=== PATIENT | female | born 1975 | race Caucasian/White ===

== ENCOUNTER 2016-11-17 19:32 | Emergency (ER) | payer SELFPAY ==
[2016-11-17 19:56] VITALS: RESP 16; O2SAT 98
[2016-11-17] MEDS ORDERED: SULFAMETHOX/TMP 800/160 MG 1 TAB PO ONE (20:07)
--- NOTE | 2016-11-17 20:09 | EDPHY ---
H & P Stated Complaint: Possible baker bite to left foot. HPI/ROS: CHIEF COMPLAINT: Skin infection HISTORY OF PRESENT ILLNESS: possible skin infections in the left foot and left hand. These are amongst several places on her body that appears excoriated. They have been present for 1-2 weeks. She has attempted nothing other than soap on these. She has no fever or chills. No cough or congestion. No body aches. No trauma to the ear. No purulence or fluctuance. She has multiple areas of these and other bodies of various stages of healing. No particular modifying factors to this. REVIEW OF SYSTEMS: Ten systems reviewed and are negative unless otherwise noted in the HPI EXAMINATION General Appearance: Alert, no distress , unkempt Head: normocephalic, atraumatic Eyes: Pupils equal and round, no conjunctival pallor or injection ENT, Mouth: Mucous membranes moist. Uvula midline Respiratory: No dyspnea or retractions. No distress Cardiovascular: Pulses normal throughout. symmetric radial, DP and PT pulsesBrisk cap refill Gastrointestinal: No distention or tenderness Neurological: A&O, sensory symmetric, strength symmetric Skin: Warm and dry, multiple areas of excoriation about the arms and legs. The 2 areas of concern are mild excoriations with possible early infection. There is no palpable fluctuance. No surrounding cellulitis. No edema. No petechiae or purpura. Extremities: Nontender, no pedal edema Psychiatric: Mood and affect normal MDM: 8:00 p.m. superficial wounds to the left foot and left hand. There is no abscess. No cellulitis. There is no evidence of cellulitis. There are also other areas of excoriation about her arms and legs are no evidence of infection. These look like small areas of skin breakdown been excoriated repeatedly. There is nothing to incise and drain. There is no surrounding infection. There is no evidence of DVT or compartment syndrome on either extremity. Discharge with antibiotic therapy and follow up with primary care physician later this week or early next week ED Precautions: Worsening pain. Erythema, edema, cyanosis, pallor, paresthesia or anesthesia. SUPERVISION: This patient was independently evaluated without the aide of supervising physician. Source: Patient Exam Limitations: No limitations - Personal History LMP (Females 10-55): Irregular Current Tetanus Diphtheria and Acellular Pertussis (TDAP): Unsure - Medical/Surgical History Hx Asthma: No Hx Chronic Respiratory Disease: No Hx Diabetes: No Hx Cardiac Disease: No Hx Renal Disease: No Hx Cirrhosis: No Hx Alcoholism: No Hx HIV/AIDS: No Hx Splenectomy or Spleen Trauma: No Other PMH: Lupus, Chrohns. - Social History Smoking Status: Light smoker Constitutional: Initial Vital Signs Temperature (C) 97.7 F 11/17/16 19:39 Heart Rate 78 11/17/16 19:39 Respiratory Rate 16 11/17/16 19:39 Blood Pressure 120/69 11/17/16 19:39 O2 Sat (%) 98 11/17/16 19:39 O2 Delivery Mode Room Air Allergies/Adverse Reactions: No Known Allergies Allergy (Unverified 11/17/16 19:42) Home Medications: Medication Instructions Recorded Sulfamethox/Tmp 800/160 mg 2 tab PO BID 10 Days 11/17/16 [Bactrim Ds] Medical Decision Making - Data Points Medications Given: Discontinued Medications Trimethoprim/Sulfamethoxazole (Bactrim Ds) 2 ea PO EDNOW ONE PRN Reason: Protocol Stop: 11/17/16 20:08 Last Admin: 11/17/16 20:41 Dose: 2 ea Departure - Departure Disposition: Home, Routine, Self-Care Clinical Impression: Excoriation, Superficial injury of skin Instructions: Acute Wound Care (ED) Additional Instructions: Bactrim as discussed. Follow up with primary care physician later this week or early next week for repeat care. Return to ER for worsening pain or surrounding redness, or fever. Referrals: NONE *PRIMARY CARE P,. [Primary Care Provider] - As per Instructions Gemini Barr MD [Medical Doctor] - As per Instructions Prescriptions: Sulfamethox/Tmp 800/160 mg [Bactrim Ds] 2 tab PO BID 10 Days
[2016-11-17] MEDS ORDERED: BACITRACIN OINTMENT 1 PACKET TP ONE (20:35)
[2016-11-17 20:44] VITALS: BP 120/71; PULSE 66; TEMP 97.9
== END 2016-11-17 20:44 | disposition home or self-care (01) ==
DX: L98.1 Factitial dermatitis (principal); F17.200 Nicotine dependence, unspecified, uncomplicated; S69.92XA Unspecified injury of left wrist, hand and finger(s), initial encounter; S99.922A Unspecified injury of left foot, initial encounter; X58.XXXA Exposure to other specified factors, initial encounter

== ENCOUNTER 2017-01-21 11:00 | Inpatient (IN) | payer MEDICAID ==
[2017-01-21] MEDS ORDERED: VANCOMYCIN HCL/NORMAL SALINE 250 ML IV ONE (11:05)
[2017-01-21] MEDS ORDERED: TDAP ADULT 0.5 ML INJ (BOOSTRIX) IM ONE (11:05)
--- NOTE | 2017-01-21 11:08 | EDPHY ---
H & P Time Seen by Provider: 01/21/17 11:06 HPI/ROS: CHIEF COMPLAINT: Bilateral hand pain HISTORY OF PRESENT ILLNESS: 41-year-old homeless female, history of cutaneous MRSA, arrives via ambulance complaining of bilateral hand pain for the past 3 days after injecting methamphetamine into her bilateral hands. She has limited range of motion of her bilateral hands secondary to soft tissue swelling and pain. No fever or chills. No chest pain. No dyspnea. No back pain. No syncope or near syncope. No headache. PRIMARY CARE PROVIDER:none REVIEW OF SYSTEMS: A ten point review of systems was performed and is negative with the exception of the items mentioned in the HPI PAST MEDICAL & SURGICAL HISTORY: Lymphoma as a child. cutaneous MRSA SOCIAL HISTORY: homeless. History of IV drug use PHYSICAL EXAM (Prior to examination, patient consented to physical exam, hands were washed and my usual and customary physical exam procedures followed) 1) GENERAL: Well-developed, well-nourished, alert and oriented. 2) HEAD: Normocephalic, atraumatic 3) HEENT: Pupils equal, round, reactive to light bilaterally. Sclera anicteric. 4) NECK: Full range of motion, no meningeal signs. 5) LUNGS: Clear auscultation bilaterally. 6) HEART: Regular rate and rhythm,. 7) ABDOMEN: No guarding, no rebound, no focal tenderness,, 8) MUSCULOSKELETAL: Right upper extremity: Right volar hand in the webspace between the 1st and 2nd metacarpal non weeping circular lesion. Soft tissue swelling, edema, induration, erythema to the dorsal hand and fingers. Significant pain with active and passive range of motion Left upper extremity:Soft tissue swelling, edema, induration, erythema to the dorsal hand and fingers. Significant pain with active and passive range of motion. 9) BACK: No CVA tenderness 10) SKIN: No rash, no petechiae. 11) Psychiatric: Patient is oriented X 3, there is no agitation. DIFFERENTIAL DIAGNOSIS: in no particular include but not limited to upper extremity DVT, cellulitis, necrotizing fasciitis, retained foreign body from injectable drug use, deep space infection, abscess - Medical/Surgical History Hx Asthma: No Hx Chronic Respiratory Disease: No Hx Diabetes: No Hx Cardiac Disease: No Hx Renal Disease: No Hx Cirrhosis: No Hx Alcoholism: No Hx HIV/AIDS: No Hx Splenectomy or Spleen Trauma: No Other PMH: Lupus, Chrohns. - Social History Smoking Status: Light smoker Constitutional: Initial Vital Signs Temperature (C) 37.0 C 01/21/17 11:00 Heart Rate 124 H 01/21/17 11:00 Respiratory Rate 18 01/21/17 11:00 Blood Pressure 130/73 H 01/21/17 11:00 O2 Sat (%) 99 01/21/17 11:00 O2 Delivery Mode Room Air Allergies/Adverse Reactions: No Known Allergies Allergy (Unverified 11/17/16 19:42) Home Medications: Medication Instructions Recorded Sulfamethox/Tmp 800/160 mg 2 tab PO BID 10 Days 11/17/16 [Bactrim Ds] Medical Decision Making - Diagnostics Imaging: Bilateral Upper Extremity Venous Ultrasound History: Bilateral arm pain and swelling. Technique: The right and left upper extremity venous system as well as neck veins were interrogated with grayscale, color, and spectral Duplex Doppler imaging. Venous ultrasound demonstrates normal appearance of the internal jugular vein and subclavian vein bilaterally with normal color-flow Doppler pattern. The axillary, basilic, brachial, radial, and ulnar veins are normal in appearance bilaterally without intraluminal thrombus with normal compression and normal color-flow Doppler appearance. The right cephalic vein in the region of the antecubital fossa contains echogenic chronic thrombus. The proximal to mid right cephalic vein cannot be visualized. The left cephalic vein is small in caliber without evidence of thrombus. Impression: 1. No evidence of intraluminal deep thrombus venous system right and left upper extremity. 2. Chronic thrombus suspected in the right cephalic vein near the antecubital fossa. This cannot be identified proximally. 3. The left cephalic vein is small in caliber but appears to be patent. Findings were discussed by telephone with Johan Hughes PA-C at 1233 hrs. Dictated By: Alexei Ortega MD Images reviewed by myself ED Course/Re-evaluation: Patient was re-examined with serial examinations. Concerns patient over possible deep space infection bilateral hands. Doubt necrotizing fasciitis at this time. She has been started on IV vancomycin, IV hydration provided. Discussed case WithDr. Johan Galindo in the ER. Patient did meet septic shock criteria with an initial lactate of 4.2 and and repeat lactate 2.1. Phone consultation with hospitalist Jacque at 12:35 p.m., admit to Dr. Vergara with Hand surgery consultation . 1:30 p.m.: Phone consultation with Dr. Petey Ma Hand surgery who will consult. - Data Points Laboratory Results: 01/21/17 01/21/17 01/21/17 12:10 11:25 11:00 VBG Lactic Acid 2.1 mmol/L mmol/L 4.2 mmol/L H mmol/L (0.7-2.1) (0.7-2.1) Beta HCG, Qual NEGATIVE Medications Given: Discontinued Medications Diphtheria/Tetanus/Acell Pertussis (Boostrix) 0.5 ml IM .ONCE ONE Stop: 01/21/17 11:06 Last Admin: 01/21/17 11:33 Dose: 0.5 ml Hydromorphone HCl (Dilaudid) 1 mg IVP EDNOW ONE Stop: 01/21/17 12:12 Last Admin: 01/21/17 12:13 Dose: 1 mg Vancomycin/Sodium Chloride (Vancomycin 1 Gm (Premix)) 250 mls @ 250 mls/hr IV EDNOW ONE PRN Reason: Protocol Stop: 01/21/17 12:04 Last Admin: 01/21/17 11:40 Dose: 250 mls Lorazepam (Ativan Injection) 1 mg IVP EDNOW ONE Stop: 01/21/17 12:47 Last Admin: 01/21/17 12:59 Dose: 1 mg Ondansetron HCl (Zofran) 4 mg IVP EDNOW ONE Stop: 01/21/17 12:12 Last Admin: 01/21/17 12:13 Dose: 4 mg Sodium Chloride (Ns *For Sepsis Order Set Only*) 1,878 ml 30 ml/kg (1878 ml) IV ONCE ONE Stop: 01/21/17 11:17 Last Admin: 01/21/17 12:11 Dose: 1,878 ml Departure - Departure Disposition: [facility] Inpatient Acute Clinical Impression: Bilateral hand cellulitis, IV drug user, Homeless, Septic shock Condition: Fair
[2017-01-21] MEDS ORDERED: NS 1,000 ML BAG *FOR SEPSIS ORDER SET ONLY IV ONE (11:16)
[2017-01-21 11:44] LABS: % IMMATURE GRANULYOCYTES 1.1 % (0.0-1.1); ABSOLUTE IMMATURE GRANULOCYTES 0.26 10^3/uL (0.00-0.10); ADD DIFF? NO; ADD MORPH? NO; ADD SCAN? NO; ATYPICAL LYMPHOCYTE FLAG 10 (0-99); FRAGMENT RBC FLAG 0 (0-99); HEMATOCRIT 41.2 % (38.0-47.0); HEMOGLOBIN 13.9 g/dL (12.6-16.3); LEFT SHIFT FLG 80 (0-99); LIPEMIA HEMOLYSIS FLAG 80 (0-99); MEAN CELL HEMOGLOBIN 29.2 pg (27.9-34.1); MEAN CELL HEMOGLOBIN CONCENTR. 33.7 g/dL (32.4-36.7); MEAN CELL VOLUME 86.6 fL (81.5-99.8); MEAN PLATELET VOLUME 10.8 fL (8.7-11.7); PLATELET CLUMPS FLAG 10 (0-99); PLATELET COUNT 315 10^3/uL (150-400); RED BLOOD CELL COUNT 4.76 10^6/uL (4.18-5.33); RED CELL DISTRIBUTION WIDTH 13.6 % (11.5-15.2)
[2017-01-21 11:55] LABS: INR 1.26 (0.83-1.16); PROTIME(PATIENT) 15.8 SEC (12.0-15.0)
[2017-01-21 12:06] LABS: ANION GAP 16 mEq/L (8-16); BILIRUBIN,TOTAL 1.1 mg/dL (0.1-1.4); CALCIUM 9.3 mg/dL (8.5-10.4); CARBON DIOXIDE 20 mEq/l (22-31); CHLORIDE 99 mEq/L (97-110); CREATININE 0.8 mg/dL (0.6-1.0); GLOMERULAR FILTRATION RATE > 60; GLUCOSE 174 mg/dL (70-100); POTASSIUM 3.9 mEq/L (3.5-5.2); SODIUM 135 mEq/L (134-144)
[2017-01-21] MEDS ORDERED: ONDANSETRON 4 MG/2 ML VIAL IVP ONE (12:11)
[2017-01-21] MEDS ORDERED: HYDROmorphONE/DILAUDID 1 MG/ML SYR IVP ONE (12:11)
[2017-01-21 12:34] LABS: LACGHOST ORDER
[2017-01-21] MEDS ORDERED: LORazepam 2 MG/ML INJ IVP ONE (12:46)
[2017-01-21] MEDS ORDERED: LORazepam 2 MG/ML INJ IVP PRN (13:38)
[2017-01-21] MEDS ORDERED: ONDANSETRON 4 MG/2 ML VIAL IVP PRN (13:38)
[2017-01-21] MEDS ORDERED: ONDANSETRON DISINTEGRATING 4 MG TAB PO PRN (13:38)
[2017-01-21] MEDS ORDERED: ERTAPENEM 1 GM in NS 100 ML IV SCH (14:00)
--- NOTE | 2017-01-21 15:18 | GHP ---
[f rep st] HISTORY AND PHYSICAL DATE OF ADMISSION: 01/21/2017 CHIEF COMPLAINT: Bilateral hand swelling. HISTORY OF PRESENT ILLNESS: This is a 41-year-old female who has been using injection methamphetamine. She presents with 2 days of bilateral hand swelling and redness. She has had fevers that started about yesterday. She has difficulty moving her hands given the swelling and pain. She has no streaking up her arm. She says that she cleans her needles with alcohol and does not lick them before injecting. She does have a history of MRSA when she was in [place] which required per her report an extensive debridement of soft tissue in her leg. She has been negative for HIV and hepatitis in the past. She started injecting about 6 months ago when she had social issues. PAST MEDICAL/SURGICAL HISTORY: 1. MRSA as above. 2. Lymphoma as a child. 3. Debridement of leg infection. MEDICATIONS: She says she takes no medications. ALLERGIES: None. SOCIAL HISTORY: She is homeless. She rarely drinks. She uses meth as above. FAMILY HISTORY: She says her parents are healthy. REVIEW OF SYSTEMS: A 10-point review of systems is conducted and is negative except per HPI. PHYSICAL EXAMINATION: VITAL SIGNS: Blood pressure 129/84, initial heart rate 124, respiration rate 18, saturating 99% on room air. Temperature 37. GENERAL : The patient is quite somnolent. She is lying in bed. She is also tearful throughout the interview. HEENT: Normocephalic, atraumatic. CARDIOVASCULAR: Regular rate and rhythm. There is no murmurs, rubs, or gallops. PULMONARY: Lungs are clear to auscultation bilaterally. ABDOMEN: Soft, nontender, nondistended. SKIN: Multiple tattoos. : No Fowler. NEUROLOGICAL: Exam shows her to be alert and oriented x3. She is moving all extremities. PSYCHIATRIC: Exam shows her to be tearful. EXTREMITIES: Bilateral hands are edematous and erythematous. They are very tender to palpation. They are warm. She has no streaking up her arm. She has no axillary lymphadenopathy. There is no clear area of fluctuance. She has very limited movement in all 4 of her fingers, more on her left hand than the right. LABORATORY DATA: Her white count is 23.9, this is 93% neutrophils. INR is 1.26. Initial venous lactate was 4.2, down to 2.1 on recheck. Basic metabolic panel shows a bicarbonate of 20. DATA: 1. I discussed this with Dave Hughes in the ED. 2. I reviewed her extremity venous study that showed a superficial suspected chronic thrombus in the antecubital fossa. 3. Chest x-ray, personally viewed by me, shows mild increase in her pulmonary vasculature bilaterally. 4. Hand x-rays which are awaiting radiologist's read show no acute fractures. IMPRESSION/PLAN: A 41-year-old female presents with sepsis secondary to soft tissue infection. 1. Sepsis. She meets the definition for septic shock given her lactate. She has received appropriate sepsis bolus. I have placed her on broad-spectrum antibiotics. 2. Bilateral soft tissue infection: This is due to IV drug use. Hand Surgery has been consulted. I have placed an infectious disease consult. She has been given vancomycin in the ED. I will add Invanz given the mechanism to cover Gram negatives while we are awaiting culture data. She may require debridement. 3. IV drug use. She has consented to HIV and hepatitis screening. I have ordered these. She does not use heroin to her knowledge; thus, I do not expect any significant opiate withdrawal. Withdrawal from methamphetamine would be mostly somnolence. She is somewhat agitated. I have written to give her Ativan. /[id number]/MODL MTDD
--- NOTE | 2017-01-21 15:38 | GCON ---
[f rep st] CONSULTATION ORTHOPEDIC CONSULTATION. DATE OF CONSULTATION: 01/21/2017 REASON FOR CONSULTATION: Bilateral hand swelling. HISTORY OF PRESENT ILLNESS: The patient is a 41-year-old homeless female who has had 2 or 3 day his tory of bilateral hand swelling and pain. This is after she has injected methamphetamine into both hands multiple times over the last several days. She has a history of MRSA, and she was brought via ambulance to the [facility] emergency department. I was consulted and saw her. PAST MEDICAL HISTORY: MRSA, lymphoma as a child. SOCIAL HISTORY: She is homeless. IV drug abuser. REVIEW OF SYSTEMS: No shortness of breath or chest pain. She is complaining of some chills. Other garcia, review of systems unremarkable. PHYSICAL EXAM: GENERAL: Multiple tattoos throughout her body. She has scabs on her face and arms. There are multiple track arora from IV drug abuse into both forearms and hands. HEENT: Pupils ar e equal, round, and react to light. NECK: Supple. No lymphadenopathy. No JVD. CHEST: Clear to auscultation. CARDIOVASCULAR: Regular rate and rhythm. ABDOMEN: No tenderness. EXTREMITIES: Fo cusing on her hands shows diffuse swelling, mainly dorsally from the wrist creases all the way down to the tips of her fingers. She has 2+ radial pulses. Brisk capillary refill to all fingertips. S he has pain with both active and passive movement of her fingers. She is nontender in the flexor te ndons of both hands. Forearm compartments are soft. VITAL SIGNS: In the emergency department, her blood pressure is 134/71. Heart rate is 105. Respiratory rate is 16. Oxygen saturation is 96% on room air. LABORATORY STUDIES/X-RAYS: Labs show a white count of 23.9, H and H are 13.9 and 41.22. Chemistrie s show an elevated glucose at 174. X-rays of bilateral hands: There are no retained foreign bodies. No acute fractures are seen. An ultrasound of the forearms show no evidence of an intraluminal deep thrombosis of the right or le ft upper extremities. Suspect chronic thrombosis in the right cephalic vein near the antecubital fo ssa. ASSESSMENT: Cellulitis, bilateral hands. PLAN: At this point, I do not detect any fluctuance in her hands. She does have diffuse swelling. I do not see any evidence of an obvious abscess somewhere in her hands. None of the track arora se en to be draining. I think a reasonable first step would be IV antibiotics. We will see how she re sponds over the next 24 hours or so. We may need to consider MRIs of both her hands to look for a d eep abscess in her hands as a possible surgical target to drain if she fails to respond to IV antibi otic therapy. /[id number]/MODL
[2017-01-21] MEDS: oxyCODONE IR 5 MG TAB PO PRN ×2 (17:22→20:14)
[2017-01-21] MEDS ORDERED: NS 1,000 ML IV ONE ×2 (17:32→20:02)
[2017-01-21] MEDS ORDERED: ALTEPLASE 2 MG VIAL IVP PRN (17:41)
[2017-01-21] MEDS: ACETAMINOPHEN 325 MG TAB PO PRN (17:50)
--- NOTE | 2017-01-21 19:43 | GCON ---
[f rep st] CONSULTATION INFECTIOUS DISEASES CONSULTATION DATE OF CONSULTATION: 01/21/2017 REFERRING PHYSICIAN: Cordell Vergara MD REASON FOR CONSULTATION: Sepsis with bilateral hand infection. HISTORY OF PRESENT ILLNESS: The patient is a 41-year-old female with a past medical history of inje ction drug use and MRSA infection who I am asked to see in consultation for sepsis associated with b ilateral hand infection. The patient describes scraping her hands several days prior to onset of munson nd swelling and tenderness. She also notes that she has been injecting ecstasy into her hands bilat erally. The pain is such that she has difficulty moving her fingers or wrist. She also has develop ed fever and shaking chills over the last 2 days with diffuse myalgias and arthralgias. She also munson s had associated cough. The patient states she does not share needles and uses clean needles, witho ut exposure to oral mucosa prior to injection. She states she uses distilled water to resolve her e cstasy. The patient notes that she had MRSA infection of both hands and her right foot approximatel y 3 months ago and was hospitalized in [place]. She also notes MRSA infection of the left leg in the past when injured in [place]. The patient notes her cough is productive of sputum; this is associ ated with anterior pleuritic chest pain. Based on these findings, she was seen the emergency depart ment earlier today and noted to have a white count of 23,000 with left shift. She also had concomit ant increase in lactic acid, initially to 4.2 which decreased to 2.1 after IV fluid. She has experi enced temperatures since admission peaking at 39.4. She has been initiated on empiric antibiotic th era with vancomycin and ertapenem. Bilateral hand films show swelling without soft tissue gas. B ilateral venous ultrasounds of the upper extremity showed no evidence of DVT, with suspected chronic thrombus in the right cephalic vein. The patient has also been seen in consultation by Hand Surger y with plans for observation while on antibiotic therapy. Given the above findings, I am now asked to assist in her ongoing management. PAST MEDICAL HISTORY: MRSA skin and soft tissue infection, Crohn's disease, lupus. PAST SURGICAL HISTORY: Partial colectomy, left lower extremity leg debridement. CURRENT MEDICATIONS: Ertapenem 1 g IV daily, morphine as needed for severe pain, OxyIR as needed fo r pain, vancomycin 1 g IV q.12 hours; patient received Tdap in the emergency department. ALLERGIES: Patient notes that she has multiple allergies including codeine, some antidepressants, a nd penicillin. SOCIAL HISTORY: Patient is homeless. She denies use of tobacco. She does not use alcohol. She de scribes injecting ecstasy on a regular basis; she has used amphetamines in the past as well. FAMILY HISTORY: Noncontributory. REVIEW OF SYSTEMS: Outside that noted in the HPI, the remainder of a 10 system review is unremarkab le. PHYSICAL EXAMINATION: VITAL SIGNS: Temperature 39.4, heart rate 140, blood pressure 165/93, respir atory rate 24, oxygen saturation 98% on room air. GENERAL: Patient is mildly ill appearing due to pain in both hands; she appears nontoxic. HEENT: There are abrasions over the forehead, left naris and lips. There are no intraoral lesions. Mucous membranes are dry. There is no tenderness over the frontal, maxillary or mastoid area. There is resolving ecchymosis around the left orbit. NECK: Supple without lymphadenopathy or palpable thyromegaly. CHEST: Clear to auscultation bilaterally without adventitious sounds. Respiratory effort is mildly increased. There is episodic cough. CA RDIOVASCULAR: Tachycardic without murmurs, gallops, or rubs. ABDOMEN: Soft, nontender, nondistend ed. There is no palpable organomegaly. Bowel sounds are present. MUSCULOSKELETAL: Bilateral hand s show edema, primarily over the dorsal surface with erythema and scattered track arora from injecti ons; there is tenderness with range of motion of the left wrist and erythema extends into the forear m. There is less tenderness with range of motion of the right wrist. Patient has difficulty fully extending or flexing her digits. There is no palpable fluctuance. The areas are both warm and tend er throughout. LYMPHATICS: There are no cervical or supraclavicular nodes. There are 2 areas of l ymphangitis streaking over the left upper extremity. NEUROLOGIC: Patient is alert and interacts ap propriately with the examiner. Cranial nerves 2-12 are grossly intact. Sensation is grossly intact . SKIN: See musculoskeletal for details. There are no stigmata of endocarditis. Skin is diffusely warm to palpation. LABORATORY DATA: White blood cell count 23.9, hematocrit 41.2, platelets 315, neutrophils 93%. Seru m creatinine 0.8, bicarbonate 20. Anion gap is 16. Beta HCG is negative. INR is 1.3. Venous lactat e is 4.2, decreasing to 2.1 on repeat. Hepatitis C antibody is reactive with hepatitis B surface ant igen and core IgM negative. HIV antibody is pending. Blood cultures x2 sets are pending. IMPRESSION: Sepsis due to bilateral hand cellulitis in this setting of injection drug use and histo ry of MRSA: Likely etiology for the patient's presentation is bilateral hand infection with gram-po sitive organisms being most likely including MRSA, MSSA or beta-hemolytic streptococci. Lymphangiti s is present which could be seen with either entity. Given the history of injection drug use, broad er microbiologic spectrum including Pseudomonas is possible. Will need to follow her exam carefully with antibiotic therapy to assess for evolution to abscess or septic arthritis. May have element o f tenosynovitis present. We will also check influenza as this is prevalent locally currently and co uld also be associated with superimposed infection. Suspect patient may have concomitant bacteremia based on presentation. RECOMMENDATIONS: 1. Agree with vancomycin 1 g IV q.12 hours. 2. Change ertapenem to meropenem for activity against Pseudomonas. 3. Influenza swab by PCR. 4. Repeat venous lactate. 5. Follow up blood cultures over time. 6. Continue to follow clinical exam of hands with low threshold for imaging if does not show improv ement with antibiotic therapy. Thank you for this consultation. We will continue to follow the patient with you. /[id number]/MODL
[2017-01-21] MEDS: LORazepam 0.5 MG TAB PO PRN (20:13)
[2017-01-21] MEDS: MEROPENEM 1 GM in NS 100 ML IV SCH (21:44)
[2017-01-21] MEDS: VANCOMYCIN HCL/NORMAL SALINE 250 ML IV SCH (22:49)
[2017-01-21 23:07] LABS: COLOR AMBER; LEUKOCYTE ESTERASE,URINE 2+ (NEGATIVE); NITRITE,URINE NEGATIVE (NEGATIVE)
[2017-01-21 23:16] LABS: BACTERIA 2+ /hpf (NONE SEEN); MUCUS TRACE /lpf (NONE-1+); RBC,URINE 15-25 /hpf (0-3); WBC,URINE 50-182 /hpf (0-3)
--- NOTE | 2017-01-22 01:12 | HOSPPROG ---
Hospitalist Progress Note Assessment/Plan: Cross cover note: Called from lab for notification that blood cultures positive in both sets-- first set back with identification of strep pyogenes, second set showing GPC in pairs and chains thus far. Reviewed abx and currently with appropriate coverage. ID following. No change in care plan at this time. Objective: Vital Signs Temp Pulse Resp BP Pulse Ox 37.8 C 128 H 122 H 138/60 H 94 01/21/17 20:00 01/21/17 20:00 01/21/17 20:00 01/21/17 21:52 01/21/17 20:00 Laboratory Results 01/21/17 Unknown 01/21/17 Unknown 01/20/17 01/21/17 01/22/17 05:59 05:59 05:59 Intake Total 1999 Balance 1999 PT 15.8 SEC (12.0-15.0) H 01/21/17 Unknown INR 1.26 (0.83-1.16) H 01/21/17 Unknown ICD10 Worksheet Patient Problems: Problems Problem Status Onset IV drug user Acute Homeless Acute Septic shock Acute
[2017-01-22] MEDS: ACETAMINOPHEN 325 MG TAB PO PRN ×4 (02:38→21:56)
[2017-01-22] MEDS: oxyCODONE IR 5 MG TAB PO PRN ×5 (03:17→21:56)
[2017-01-22 04:34] LABS: % IMMATURE GRANULYOCYTES 0.8 % (0.0-1.1); ABSOLUTE IMMATURE GRANULOCYTES 0.16 10^3/uL (0.00-0.10); ADD DIFF? NO; ADD MORPH? NO; ADD SCAN? NO; ATYPICAL LYMPHOCYTE FLAG 0 (0-99); FRAGMENT RBC FLAG 0 (0-99); HEMATOCRIT 31.4 % (38.0-47.0); HEMOGLOBIN 10.4 g/dL (12.6-16.3); LEFT SHIFT FLG 30 (0-99); LIPEMIA HEMOLYSIS FLAG 80 (0-99); MEAN CELL HEMOGLOBIN 29.3 pg (27.9-34.1); MEAN CELL HEMOGLOBIN CONCENTR. 33.1 g/dL (32.4-36.7); MEAN CELL VOLUME 88.5 fL (81.5-99.8); MEAN PLATELET VOLUME 10.1 fL (8.7-11.7); PLATELET CLUMPS FLAG 0 (0-99); PLATELET COUNT 202 10^3/uL (150-400); RED BLOOD CELL COUNT 3.55 10^6/uL (4.18-5.33); RED CELL DISTRIBUTION WIDTH 13.9 % (11.5-15.2)
[2017-01-22 05:38] LABS: ALANINE AMINOTRANSFERASE 27 IU/L (9-52); ALBUMIN 2.5 g/dL (3.5-5.0); ALKALINE PHOSPHATASE 75 IU/L (38-126); ANION GAP 6 mEq/L (8-16); ASPARTATE AMINOTRANSFERASE 25 IU/L (14-46); BILIRUBIN,TOTAL 0.6 mg/dL (0.1-1.4); CALCIUM 7.8 mg/dL (8.5-10.4); CARBON DIOXIDE 22 mEq/l (22-31); CHLORIDE 103 mEq/L (97-110); CREATININE 0.8 mg/dL (0.6-1.0); GLOMERULAR FILTRATION RATE > 60; GLUCOSE 133 mg/dL (70-100); POTASSIUM 3.9 mEq/L (3.5-5.2); SODIUM 131 mEq/L (134-144); TOTAL PROTEIN 5.3 g/dL (6.3-8.2)
[2017-01-22] MEDS: MEROPENEM 1 GM in NS 100 ML IV SCH (05:51)
--- NOTE | 2017-01-22 07:53 | SOAPPROG ---
[facility] Progress Note Assessment/Plan: Assessment: Plan: 01/22/17 07:50 +blood cx's o/n Cellulitis vs septic arthritis both wrists/hands clinical improvement right, no change left will get IR to aspirate left wrist MRI's W/WO both wrist/hands to look for abscess today Subjective: Right wrist feeling better Objective: Less swelling, better movement right wrist and fingers Continued tenderness left wrist and dorsum of left hand no obvious fluctuance or abscess Vital Signs Temp Pulse Resp BP Pulse Ox 38.8 C H 116 H 14 109/51 L 97 01/22/17 04:00 01/22/17 04:00 01/22/17 04:00 01/22/17 04:00 01/22/17 04:00 Laboratory Results 01/22/17 04:25 01/22/17 04:25 01/21/17 01/22/17 01/23/17 05:59 05:59 05:59 Intake Total 2600 Balance 2600 PT 15.8 SEC (12.0-15.0) H 01/21/17 Unknown INR 1.26 (0.83-1.16) H 01/21/17 Unknown ICD10 Worksheet Patient Problems: Problems Problem Status Onset Homeless Acute IV drug user Acute Septic shock Acute
--- NOTE | 2017-01-22 10:10 | PCMIDPN ---
Assessment/Plan: Assessment/Plan: * Sepsis due to group A streptococcal bacteremia with bilateral hand cellulitis with concerns for possible bilateral septic arthritis and/or soft tissue abscess : 2 of 2 blood cultures with growth of group A Streptococcus. Right hand slightly improved although continues to have significant pain in wrist joint and left hand remains with erythema, edema and pain in wrist joint as well as limited range of motion of fingers. Reviewed findings with Dr. Ma with plans for bilateral hand MRI and left wrist aspirate. Suspect she likely will need debridement. Will modify antibiotics to include vancomycin (until cultures more mature no evidence of MRSA present) and clindamycin (combating toxin production and [place] effect). Will discontinue meropenem. Repeat blood cultures to assess for clearing of bacteremia. 01/22/17 10:09 Subjective: Overall patient feels better but persistent bilateral hand and wrist pain. Objective: Vital Signs Temp Pulse Resp BP Pulse Ox 37.6 C 110 H 20 115/67 93 01/22/17 08:00 01/22/17 08:00 01/22/17 08:00 01/22/17 08:00 01/22/17 08:00 Laboratory Results 01/22/17 04:25 01/22/17 04:25 01/21/17 01/22/17 01/23/17 05:59 05:59 05:59 Intake Total 2600 Output Total 300 Balance 2600 -300 Vancomycin # 1 Meropenem # 1 Blood cultures 2/2 group A Streptococcus Tm 39.4 - Physical Exam General Appearance: alert, non-toxic EENT: No scleral icterus, No conjunctival petechiae Respiratory: lungs clear, No respiratory distress Cardiac/Chest: tachycardia, No systolic murmur Extremities: inflammation (Bilateral hand edema primarily on the dorsal aspect with overlying erythema, warmth and tenderness; erythema extends into digits bilaterally; decreased range of motion with flexion and extension; exquisite tenderness both wrist with palpation and range of motion; no palpable fluctuance ) Skin: No embolic lesions Lymphatic: other (Lymphangitis still present in left upper extremity but less prominent) ICD10 Worksheet Patient Problems: Problems Problem Status Onset Homeless Acute IV drug user Acute Septic shock Acute
[2017-01-22] MEDS: VANCOMYCIN HCL/NORMAL SALINE 250 ML IV SCH ×2 (11:10→23:12)
--- NOTE | 2017-01-22 14:12 | HOSPPROG ---
Hospitalist Progress Note Assessment/Plan: # septic shock (lactate > 4) d/y GAS bacteremia - slowly improving, cont IVF; has PICC # GAS bacteremia d/t cellulitis, possible septic arthritis/abscess of hands - repeat BCx, MRI today, aspirate L wrist, may need I&D in OR - cont vanc, clinda per ID # IVDU - HIV pending # HCV ab+ - check viral load ## high risk given sepsis Subjective: tachy overnight; hands still very painful Objective: Vital Signs Temp Pulse Resp BP Pulse Ox 37.5 C 102 H 22 H 119/52 L 99 01/22/17 12:00 01/22/17 12:00 01/22/17 12:00 01/22/17 12:00 01/22/17 12:00 Laboratory Results 01/22/17 04:25 01/22/17 04:25 01/21/17 01/22/17 01/23/17 05:59 05:59 05:59 Intake Total 2600 1330 Output Total 300 Balance 2600 1030 PT 15.8 SEC (12.0-15.0) H 01/21/17 Unknown INR 1.26 (0.83-1.16) H 01/21/17 Unknown - Physical Exam Constitutional: uncomfortable Cardiovascular: no murmur, rub, or gallop, tachycardia Respiratory: no respiratory distress, no rales or rhonchi, clear to auscultation Gastrointestinal: normoactive bowel sounds, soft, non-tender abdomen, no palpable masses Musculoskeletal: other (bilat hands with slightly improved erythema/edema) ICD10 Worksheet Patient Problems: Problems Problem Status Onset IV drug user Acute Homeless Acute Septic shock Acute
[2017-01-22] MEDS: CLINDAMYCIN 600 MG/DEXTROSE 50 ML IV SCH ×2 (14:48→21:56)
[2017-01-22] MEDS: NS 1,000 ML IV SCH (15:03)
[2017-01-22] MEDS ORDERED: GADOBUTROL 10 ML VIAL IVP ONE (17:16)
--- NOTE | 2017-01-22 20:15 | SOAPPROG ---
SOAP Progress Note Assessment/Plan: Assessment: Plan: 01/22/17 07:50 +blood cx's o/n Cellulitis vs septic arthritis both wrists/hands clinical improvement right, no change left will get IR to aspirate left wrist MRI's W/WO both wrist/hands to look for abscess today 01/22/17 20:13 Reviewed MRI's with DR parada no definitive fluid collection just extensive cellulitis discussed case with DR Sosa earlier Today, given the strep A cx's and only minimal clinical improvement with IVabx will proceed with Bilat I&D's of wrists and hands in am Subjective: about the same pain level Objective: blistering of skin noted dorsum left fingers significant swelling persists dorsum left hand pain with passive movement left wrist/fingers Vital Signs Temp Pulse Resp BP Pulse Ox 38.5 C H 123 H 20 124/62 H 94 01/22/17 19:16 01/22/17 19:16 01/22/17 19:16 01/22/17 19:16 01/22/17 19:16 Laboratory Results 01/22/17 04:25 01/22/17 04:25 01/21/17 01/22/17 01/23/17 05:59 05:59 05:59 Intake Total 2600 1530 Output Total 300 Balance 2600 1230 PT 15.8 SEC (12.0-15.0) H 01/21/17 Unknown INR 1.26 (0.83-1.16) H 01/21/17 Unknown ICD10 Worksheet Patient Problems: Problems Problem Status Onset Homeless Acute IV drug user Acute Septic shock Acute
[2017-01-23] MEDS: CLINDAMYCIN 600 MG/DEXTROSE 50 ML IV SCH ×3 (05:03→22:20)
[2017-01-23 05:04] LABS: % IMMATURE GRANULYOCYTES 1.5 % (0.0-1.1); ABSOLUTE IMMATURE GRANULOCYTES 0.23 10^3/uL (0.00-0.10); ADD DIFF? NO; ADD MORPH? NO; ADD SCAN? NO; ATYPICAL LYMPHOCYTE FLAG 0 (0-99); FRAGMENT RBC FLAG 0 (0-99); HEMATOCRIT 30.4 % (38.0-47.0); LEFT SHIFT FLG 60 (0-99); LIPEMIA HEMOLYSIS FLAG 80 (0-99); MEAN CELL HEMOGLOBIN 29.6 pg (27.9-34.1); MEAN CELL HEMOGLOBIN CONCENTR. 32.9 g/dL (32.4-36.7); MEAN CELL VOLUME 89.9 fL (81.5-99.8); MEAN PLATELET VOLUME 10.6 fL (8.7-11.7); PLATELET CLUMPS FLAG 0 (0-99); PLATELET COUNT 175 10^3/uL (150-400); RED BLOOD CELL COUNT 3.38 10^6/uL (4.18-5.33); RED CELL DISTRIBUTION WIDTH 13.9 % (11.5-15.2)
[2017-01-23 05:38] LABS: ANION GAP 5 mEq/L (8-16); CALCIUM 8.2 mg/dL (8.5-10.4); CARBON DIOXIDE 21 mEq/l (22-31); CHLORIDE 105 mEq/L (97-110); CREATININE 0.6 mg/dL (0.6-1.0); GLOMERULAR FILTRATION RATE > 60; GLUCOSE 100 mg/dL (70-100); POTASSIUM 4.3 mEq/L (3.5-5.2); SODIUM 131 mEq/L (134-144)
[2017-01-23] MEDS ORDERED: BACITRACIN 50,000 UNITS/10 ML SYR IRR ONE (07:37)
[2017-01-23] MEDS ORDERED: POLYMYXIN B SULFATE 500,000 UNIT/10 ML SYR IRR ONE (07:37)
[2017-01-23] MEDS ORDERED: BUPIVACAINE 0.5% 30 ML SDV ONE (07:46)
[2017-01-23] MEDS ORDERED: fentaNYL 100 MCG/2 ML INJ ONE ×2 (08:03→09:53)
[2017-01-23] MEDS ORDERED: PROPOFOL 200 MG/20 ML VIAL ONE (08:03)
[2017-01-23] MEDS ORDERED: MIDAZOLAM 2 MG/2 ML VIAL ONE ×2 (08:04→09:22)
[2017-01-23] MEDS ORDERED: DEXAMETHASONE 4 MG/ML VIAL ONE ×2 (08:37)
[2017-01-23] MEDS ORDERED: HYDROmorphONE/DILAUDID 2 MG/ML INJ ONE ×2 (08:37→10:03)
[2017-01-23] MEDS ORDERED: LIDOCAINE 2% 5 ML SDV ONE ×2 (08:37)
[2017-01-23] MEDS ORDERED: KETOROLAC 30 MG/1 ML SDV ONE (08:44)
[2017-01-23] MEDS ORDERED: ONDANSETRON 4 MG/2 ML VIAL ONE (08:44)
[2017-01-23] MEDS ORDERED: METOPROLOL TARTRATE 5 MG/5 ML INJ ONE (09:24)
--- NOTE | 2017-01-23 09:49 | POSTOPPROG ---
Post Op Note Date of Operation: 01/23/17 Surgeon: Petey Ma Anesthesiologist: delia Anesthesia: GET(General Endotracheal) Pre-op Diagnosis: septic arthritis both wrists Post-op Diagnosis: same Procedure: I&D bilat wrists and hands Inf/Abcess present in the surg proc area at time of surgery?: Yes Depth: Deep Incisional (Fascial) EBL: 100-500 Complications: none Drains: Ivan Gutierrez Specimen(s): 4 swabs
--- NOTE | 2017-01-23 10:53 | GOP ---
[f rep st] OPERATIVE REPORT DATE OF OPERATION: 01/23/2017 SURGEON: Petey Ma MD ANESTHESIA: General. ANESTHESIOLOGIST: Dr. Richardson. PREOPERATIVE DIAGNOSIS: Septic arthritis bilateral wrists. POSTOPERATIVE DIAGNOSIS: Septic arthritis bilateral wrists. PROCEDURE PERFORMED: Irrigation and debridement of bilateral hands and wrists. FINDINGS: ESTIMATED BLOOD LOSS: 100 mL. INDICATIONS: The patient is a 41-year-old IV drug abuser who presented to the hospital on Tuesday af with several day history of worsening hand pain, swelling, and difficulty using the hands. Blood cultures have grown out strep A. She is being followed by Infectious Disease as well as the h ospitalist. We obtained MRIs. There was no evidence for abscess formation other than diffuse cellu litis in both hands. Decision was made to proceed with an irrigation and debridement of her hands a nd wrists on both sides due to very minimal clinical improvement with IV antibiotics alone. DESCRIPTION OF PROCEDURE: After appropriate informed consent was obtained, patient was taken to the operating room and placed supine on the operating table. A time-out was performed. Patient was id entified, correct site was identified. She did not receive any preoperative antibiotics. She yinka nued her IV regimen from the floor. Dr. Richardson administered general endotracheal tube anesthesia. Bilateral upper extremities were prepped and draped in the usual sterile fashion. I made a dorsal i ncision extending over the wrist crease all the way down to the MCP joints on the hand. Bleeding wa s controlled with electrocautery. She had purulence in the extensor tendons of the left hand extend ing into the distal end of the forearm, all the way down into the fingers. I irrigated this out. T here was minimal necrotic tissue that was removed. No real evidence of necrotizing fasciitis was pr esent. I opened the extensor retinaculum in the dorsal wrist capsule. Wrist joint did not have any purulence in it. I sent a swab culture of that as well. I irrigated the left hand with pulsatile lavage using 6 L of normal saline. We then placed a deep drain and loosely closed the skin with nyl on stitch. I turned my attention to the right hand. Again, same incision extending from the MCP joints across the dorsal wrist crease. There was no evidence of purulence in the extensor tendons. I opened up t he wrist joint capsule. Again, no evidence there. I sent swabs both the extensor tendons as well a s the wrist joint. There was no necrotic tissue in the right hand. I irrigated the right hand with 3 L of pulsatile lavage with normal saline. There was a small abscess in the first webspace. I de brided that. There was a small amount of purulence superficially, did not extend anywhere. I washe d that out as well, mostly close that. Loosely closed the right hand with nylon stitches. I did no t place a deep drain in the right hand. I instilled 20 mL of 0.5% Marcaine plain in both wrists, 10 and 10, and then placed a loose soft dressing. The patient was awakened from anesthesia, taken to the recovery room in satisfactory condition. There were no immediate intraoperative complications. I reviewed the operative findings with Dr. Trung Sosa from Infectious Disease. COMPLICATIONS: None. DRAINS: None. /[id number]/MODL
[2017-01-23] MEDS: VANCOMYCIN HCL/NORMAL SALINE 250 ML IV SCH ×2 (12:29→19:52)
--- NOTE | 2017-01-23 14:49 | HOSPPROG ---
Hospitalist Progress Note Assessment/Plan: # septic shock (lactate > 4) d/y GAS bacteremia - slowly improving, cont IVF; has PICC # GAS bacteremia d/t soft tissue infection # cellulitis/tenosynovitis/abscess s/p I&D - abx per ID - currently pcn, vanc, clinda # IVDU - HIV pending # HCV ab+ - check viral load # hypoNa - d.t sepsis, follow ## op note reviewed MRI reviewed high risk Subjective: s/p I&D today - hands feel better Objective: Vital Signs Temp Pulse Resp BP Pulse Ox 36.4 C 96 18 138/71 H 100 01/23/17 14:21 01/23/17 14:21 01/23/17 14:21 01/23/17 14:21 01/23/17 14:21 Microbiology 01/23/17 09:10 Gram Stain - Final Wrist - Eswab 01/23/17 09:10 Gram Stain - Final Wrist - Eswab 01/23/17 09:10 Gram Stain - Final Wrist - Eswab 01/23/17 09:10 Gram Stain - Final Wrist - Eswab Laboratory Results 01/23/17 04:55 01/23/17 04:55 01/22/17 01/23/17 01/24/17 05:59 05:59 05:59 Intake Total 2600 3405 700 Output Total 300 2105 Balance 2600 3105 -1405 PT 15.8 SEC (12.0-15.0) H 01/21/17 Unknown INR 1.26 (0.83-1.16) H 01/21/17 Unknown - Physical Exam Constitutional: no apparent distress, appears nourished, not in pain Eyes: PERRL, anicteric sclera, EOMI Cardiovascular: regular rate and rhythym, no murmur, rub, or gallop Respiratory: no respiratory distress, no rales or rhonchi, clear to auscultation Gastrointestinal: normoactive bowel sounds, soft, non-tender abdomen, no palpable masses Genitourinary: no bladder fullness, no bladder tenderness, no renal bruits Skin: no rashes or abrasions, no fluctuance, no induration Musculoskeletal: other (bilat hands wrapped in gauze; ) Neurologic: AAOx3, sensation intact bilaterally Psychiatric: interacting appropriately, not anxious, not encephalopathic, thought process linear ICD10 Worksheet Patient Problems: Problems Problem Status Onset IV drug user Acute Homeless Acute Septic shock Acute
--- NOTE | 2017-01-23 17:11 | PCMIDPN ---
Assessment/Plan: Assessment/Plan: * Sepsis due to group A streptococcal bacteremia with bilateral hand cellulitis and tenosynovitis status post incision and drainage: 2 of 2 blood cultures with growth of group A Streptococcus. Operative findings reviewed with Dr. Ma. Will add penicillin to vancomycin and clindamycin pending hand cultures to provide ideal activity against group A Streptococcus; vancomycin continued based on history of MRSA although suspect this will primarily be related to group A streptococcal disease. May need second-look/incision and drainage of left hand over time based on clinical findings. * Hepatitis-C: RNA pending. 01/23/17 17:08 Subjective: Patient is status post incision and drainage of both hands with findings of purulent tenosynovitis on the left extending into the forearm; joint did not appear to have active infection. Right side did not reveal purulence. No evidence of necrotizing fasciitis operatively. Objective: Vital Signs Temp Pulse Resp BP Pulse Ox 37.0 C 87 16 120/62 96 01/23/17 16:00 01/23/17 16:00 01/23/17 16:00 01/23/17 16:00 01/23/17 16:00 Microbiology 01/23/17 09:10 Gram Stain - Final Wrist - Eswab 01/23/17 09:10 Gram Stain - Final Wrist - Eswab 01/23/17 09:10 Gram Stain - Final Wrist - Eswab 01/23/17 09:10 Gram Stain - Final Wrist - Eswab Laboratory Results 01/23/17 04:55 01/23/17 04:55 01/22/17 01/23/17 01/24/17 05:59 05:59 05:59 Intake Total 2600 3405 700 Output Total 300 2605 Balance 2600 3105 -1905 Tm 39.4 Vancomycin # 2 Clindamycin # 1 Operative Gram stain with no organisms Blood cultures 2/2 with group A Streptococcus Blood cultures 01/23/2017 pending Bilateral hand MRI without evidence of abscess; tenosynovitis present bilaterally Laboratory Tests 01/23/17 11:05 Vancomycin Trough 5.2 - Physical Exam General Appearance: alert, no apparent distress EENT: No scleral icterus, No conjunctival petechiae Respiratory: lungs clear, No respiratory distress Cardiac/Chest: regular rate, rhythm, No systolic murmur Extremities: inflammation (Bilateral hands dressed postoperatively; bullous lesions present over dorsal aspects of several digit/dorsal hand distally) Abdomen: non-tender, No distended ICD10 Worksheet Patient Problems: Problems Problem Status Onset Homeless Acute IV drug user Acute Septic shock Acute
[2017-01-23] MEDS: PENICILLIN G POTASSIUM 4,000,000 UNIT in D5W 100 ML IV SCH ×2 (17:58→23:25)
[2017-01-23] MEDS: oxyCODONE IR 5 MG TAB PO PRN (19:52)
[2017-01-24] MEDS: PENICILLIN G POTASSIUM 4,000,000 UNIT in D5W 100 ML IV SCH ×6 (01:58→22:44)
[2017-01-24] MEDS: oxyCODONE IR 5 MG TAB PO PRN ×6 (02:32→21:46)
[2017-01-24] MEDS: VANCOMYCIN HCL/NORMAL SALINE 250 ML IV SCH (04:32)
[2017-01-24 05:07] LABS: % IMMATURE GRANULYOCYTES 0.5 % (0.0-1.1); ABSOLUTE IMMATURE GRANULOCYTES 0.07 10^3/uL (0.00-0.10); ADD DIFF? NO; ADD MORPH? NO; ADD SCAN? NO; ATYPICAL LYMPHOCYTE FLAG 0 (0-99); FRAGMENT RBC FLAG 0 (0-99); HEMATOCRIT 25.5 % (38.0-47.0); HEMOGLOBIN 8.4 g/dL (12.6-16.3); LEFT SHIFT FLG 80 (0-99); LIPEMIA HEMOLYSIS FLAG 80 (0-99); MEAN CELL HEMOGLOBIN 29.1 pg (27.9-34.1); MEAN CELL HEMOGLOBIN CONCENTR. 32.9 g/dL (32.4-36.7); MEAN CELL VOLUME 88.2 fL (81.5-99.8); MEAN PLATELET VOLUME 11.3 fL (8.7-11.7); PLATELET CLUMPS FLAG 0 (0-99); PLATELET COUNT 200 10^3/uL (150-400); RED BLOOD CELL COUNT 2.89 10^6/uL (4.18-5.33); RED CELL DISTRIBUTION WIDTH 13.9 % (11.5-15.2)
[2017-01-24 05:14] LABS: ANION GAP 3 mEq/L (8-16); CALCIUM 8.3 mg/dL (8.5-10.4); CARBON DIOXIDE 23 mEq/l (22-31); CHLORIDE 108 mEq/L (97-110); CREATININE 0.5 mg/dL (0.6-1.0); GLOMERULAR FILTRATION RATE > 60; GLUCOSE 108 mg/dL (70-100); POTASSIUM 4.8 mEq/L (3.5-5.2); SODIUM 134 mEq/L (134-144)
[2017-01-24] MEDS: CLINDAMYCIN 600 MG/DEXTROSE 50 ML IV SCH ×3 (06:06→21:46)
--- NOTE | 2017-01-24 09:28 | PCMIDPN ---
Assessment/Plan: Assessment/Plan: * Sepsis due to group A streptococcal bacteremia with bilateral hand cellulitis and tenosynovitis status post incision and drainage: Right hand significantly improved postoperatively in terms of range of motion of digits. Left hand still with bulla and now also has some forearm swelling and tenderness distal to elbow. No overlying cellulitis or fluctuance. Suspect she likely will require 2nd incision and drainage of left upper extremity. Will elevate as feasible today. Continue penicillin and clindamycin. Will discontinue vancomycin given no isolation of MRSA. * Hepatitis-C: RNA pending. 01/24/17 09:25 Subjective: Patient complains of pain in left forearm below elbow. Improved range of motion of right hand. Persistent blisters over left hand. Objective: Vital Signs Temp Pulse Resp BP Pulse Ox 36.6 C 78 16 153/81 H 98 01/24/17 08:01 01/24/17 08:01 01/24/17 08:01 01/24/17 08:01 01/24/17 08:01 Microbiology 01/23/17 09:10 Gram Stain - Final Wrist - Eswab 01/23/17 09:10 Gram Stain - Final Wrist - Eswab 01/23/17 09:10 Gram Stain - Final Wrist - Eswab 01/23/17 09:10 Gram Stain - Final Wrist - Eswab Laboratory Results 01/24/17 04:35 01/24/17 04:35 01/23/17 01/24/17 01/25/17 05:59 05:59 05:59 Intake Total 3405 4894 Output Total 300 4695 Balance 3105 199 Vancomycin # 3 Clindamycin # 2 Penicillin # 1 Blood cultures 01/23/2017 pending Operative cultures no growth to date - Physical Exam General Appearance: alert, no apparent distress, non-toxic EENT: No scleral icterus, No conjunctival petechiae Respiratory: lungs clear, No respiratory distress Cardiac/Chest: regular rate, rhythm, systolic murmur (2/6 left upper sternal border) Extremities: inflammation (Right hand with improved range of motion and decreased swelling of digits; left hand with slight increased range of motion but persistent limitation present; bulla over middle finger and dorsum of hand without interval change; tender over proximal forearm without erythema or fluctuance; mild edema in this region is present) Abdomen: non-tender, No distended Lymphatic: other (Left upper extremity lymphangitis resolved) ICD10 Worksheet Patient Problems: Problems Problem Status Onset Homeless Acute IV drug user Acute Septic shock Acute
[2017-01-24] MEDS: NS 1,000 ML IV SCH (10:36)
[2017-01-24] MEDS: GABAPENTIN 300 MG CAP PO SCH ×2 (15:27→21:46)
[2017-01-24] MEDS: ACETAMINOPHEN 500 MG TAB PO SCH ×2 (15:27→21:46)
--- NOTE | 2017-01-24 15:43 | HOSPPROG ---
Hospitalist Progress Note Assessment/Plan: Juanita Zhang is a 41 y/o female who use Iv methamphetamine who presented to the ER with 2 days of bilateral hand swelling with associated fevers. Today is my first encounter with the patient/ chart reviewed. Reviewed her care with Dr Sosa earlier today and with Dr Kehinde Vergara who has been caring for Juanita. 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 Objective: Vital Signs Temp Pulse Resp BP Pulse Ox 36.6 C 85 16 146/65 H 93 01/24/17 12:00 01/24/17 12:00 01/24/17 12:00 01/24/17 12:00 01/24/17 12:00 Microbiology 01/23/17 09:10 Gram Stain - Final Wrist - Eswab 01/23/17 09:10 Gram Stain - Final Wrist - Eswab 01/23/17 09:10 Gram Stain - Final Wrist - Eswab 01/23/17 09:10 Gram Stain - Final Wrist - Eswab Laboratory Results 01/24/17 04:35 01/24/17 04:35 01/23/17 01/24/17 01/25/17 05:59 05:59 05:59 Intake Total 3405 4894 Output Total 300 4695 350 Balance 3105 199 -350 PT 15.8 SEC (12.0-15.0) H 01/21/17 Unknown INR 1.26 (0.83-1.16) H 01/21/17 Unknown - Physical Exam Constitutional: appears nourished, uncomfortable, No not in pain Eyes: PERRL Ears, Nose, Mouth, Throat: hearing normal Cardiovascular: regular rate and rhythym Respiratory: no respiratory distress Gastrointestinal: normoactive bowel sounds Skin: other (blisters on left fingers and has some swelling to left forearm area / redness around elbow and below/ dressings on both hands/ right hand has good rom, less swelling) Musculoskeletal: muscular tenderness Neurologic: AAOx3 Psychiatric: interacting appropriately, not anxious ICD10 Worksheet Patient Problems: Problems Problem Status Onset Homeless Acute IV drug user Acute Septic shock Acute
--- NOTE | 2017-01-24 18:19 | SOAPPROG ---
SOAP Progress Note Assessment/Plan: Assessment: Plan: Subjective: states she's fairly comfortable and happy that fingers are intact and working dressings and splints intact NVI in both hands with blisters and ecchymosis noted on left but not right ?wash-out again on tuesday continue abx Objective: Vital Signs Temp Pulse Resp BP Pulse Ox 36.9 C 93 16 144/86 H 95 01/24/17 15:48 01/24/17 15:48 01/24/17 15:48 01/24/17 15:48 01/24/17 15:48 Microbiology 01/23/17 09:10 Gram Stain - Final Wrist - Eswab 01/23/17 09:10 Gram Stain - Final Wrist - Eswab 01/23/17 09:10 Gram Stain - Final Wrist - Eswab 01/23/17 09:10 Gram Stain - Final Wrist - Eswab Laboratory Results 01/24/17 04:35 01/24/17 04:35 01/23/17 01/24/17 01/25/17 05:59 05:59 05:59 Intake Total 3405 4894 1474 Output Total 300 4695 650 Balance 3105 199 824 PT 15.8 SEC (12.0-15.0) H 01/21/17 Unknown INR 1.26 (0.83-1.16) H 01/21/17 Unknown ICD10 Worksheet Patient Problems: Problems Problem Status Onset Homeless Acute IV drug user Acute Septic shock Acute
[2017-01-25] MEDS: PENICILLIN G POTASSIUM 4,000,000 UNIT in D5W 100 ML IV SCH ×6 (02:24→23:11)
[2017-01-25] MEDS: oxyCODONE IR 5 MG TAB PO PRN ×6 (05:24→20:58)
[2017-01-25] MEDS: CLINDAMYCIN 600 MG/DEXTROSE 50 ML IV SCH ×3 (05:24→22:17)
[2017-01-25] MEDS: ACETAMINOPHEN 500 MG TAB PO SCH ×3 (07:40→22:08)
[2017-01-25] MEDS: GABAPENTIN 300 MG CAP PO SCH ×3 (07:40→22:08)
--- NOTE | 2017-01-25 11:31 | PCMIDPN ---
Assessment/Plan: Assessment/Plan: * Sepsis due to group A streptococcal bacteremia with bilateral hand cellulitis and tenosynovitis status post incision and drainage: Right hand with significant clinical improvement without residual cellulitis and range of motion significantly improved. Left hand also significantly improved but still may require 2nd washout to ensure no residual infection present. Continue penicillin and clindamycin. Will reassess tomorrow and review with Dr. Ma regarding potential second-look operatively at left hand/forearm. * Hepatitis-C: RNA pending. 01/25/17 11:29 Subjective: Feels better with less hand pain and improving range of motion bilaterally. Elevated left upper extremity yesterday. Objective: Vital Signs Temp Pulse Resp BP Pulse Ox 36.9 C 90 18 162/70 H 97 01/25/17 07:25 01/25/17 07:25 01/25/17 07:25 01/25/17 07:25 01/25/17 07:25 Microbiology 01/23/17 09:10 Gram Stain - Final Wrist - Eswab 01/23/17 09:10 Gram Stain - Final Wrist - Eswab 01/23/17 09:10 Gram Stain - Final Wrist - Eswab 01/23/17 09:10 Gram Stain - Final Wrist - Eswab Laboratory Results 01/24/17 04:35 01/24/17 04:35 01/24/17 01/25/17 01/26/17 05:59 05:59 05:59 Intake Total 4894 1874 316 Output Total 4632 8365 900 Balance 215 -8594 -064 Penicillin # 2 Clindamycin # 3 Antibiotics # 4 Blood cultures 01/23/2017 no growth Operative cultures no growth to date - Physical Exam General Appearance: alert, no apparent distress EENT: No scleral icterus, No conjunctival petechiae Cardiac/Chest: regular rate, rhythm, No systolic murmur Extremities: inflammation (Left hand with intact incision; decreased edema over dorsum of hand and forearm; incision intact without purulent drainage; significant improvement in range of motion of digits; hemorrhagic appearing blisters over digits without change; right hand incision intact without purulence; erythema and edema significantly decreased with marked improvement in range of motion) ICD10 Worksheet Patient Problems: Problems Problem Status Onset Homeless Acute IV drug user Acute Septic shock Acute
--- NOTE | 2017-01-25 15:55 | HOSPPROG ---
Hospitalist Progress Note Assessment/Plan: Juanita Zhang is a 41 y/o female who use Iv methamphetamine who presented to the ER with 2 days of bilateral hand swelling with associated fevers. Reviewed her care with Dr Sosa. 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 CM to try and see if they can reconnect. Patient is homeless. Cont current abx. Subjective: Juanita Zhang said her hands are feeling better. Objective: Vital Signs Temp Pulse Resp BP Pulse Ox 37.1 C 106 H 18 149/79 H 93 01/25/17 15:35 01/25/17 15:35 01/25/17 15:35 01/25/17 15:35 01/25/17 15:35 Microbiology 01/23/17 09:10 Gram Stain - Final Wrist - Eswab 01/23/17 09:10 Gram Stain - Final Wrist - Eswab 01/23/17 09:10 Gram Stain - Final Wrist - Eswab 01/23/17 09:10 Gram Stain - Final Wrist - Eswab Laboratory Results 01/24/17 04:35 01/24/17 04:35 01/24/17 01/25/17 01/26/17 05:59 05:59 05:59 Intake Total 4816 1874 2366 Output Total 4614 1267 1900 Balance 199 -1001 466 PT 15.8 SEC (12.0-15.0) H 01/21/17 Unknown INR 1.26 (0.83-1.16) H 01/21/17 Unknown - Physical Exam Constitutional: chronically ill appearing, other (thin) Eyes: PERRL Ears, Nose, Mouth, Throat: hearing normal Cardiovascular: regular rate and rhythym Respiratory: no respiratory distress Gastrointestinal: normoactive bowel sounds Skin: warm, other (left fingers with bullae, less swelling in fingers, can bend them slightly, redness aroung left elbow area better. Right hand fingers less edema, still red, but can bend her fingers.) Neurologic: AAOx3 Psychiatric: interacting appropriately, anxious ICD10 Worksheet Patient Problems: Problems Problem Status Onset Homeless Acute IV drug user Acute Septic shock Acute
--- NOTE | 2017-01-25 15:57 | SOAPPROG ---
SOAP Progress Note Assessment/Plan: Assessment: Plan: Subjective: states her swelling is better and she is able to move her left fingers today blisters more full on left hand increased flexion ability in bilateral fingers cont abx and dressings Objective: Vital Signs Temp Pulse Resp BP Pulse Ox 37.1 C 106 H 18 149/79 H 93 01/25/17 15:35 01/25/17 15:35 01/25/17 15:35 01/25/17 15:35 01/25/17 15:35 Microbiology 01/23/17 09:10 Gram Stain - Final Wrist - Eswab 01/23/17 09:10 Gram Stain - Final Wrist - Eswab 01/23/17 09:10 Gram Stain - Final Wrist - Eswab 01/23/17 09:10 Gram Stain - Final Wrist - Eswab Laboratory Results 01/24/17 04:35 01/24/17 04:35 01/24/17 01/25/17 01/26/17 05:59 05:59 05:59 Intake Total 8548 8974 0511 Output Total 0336 2117 1900 Balance 199 -1001 466 PT 15.8 SEC (12.0-15.0) H 01/21/17 Unknown INR 1.26 (0.83-1.16) H 01/21/17 Unknown ICD10 Worksheet Patient Problems: Problems Problem Status Onset Homeless Acute IV drug user Acute Septic shock Acute
[2017-01-25] MEDS ORDERED: BISACODYL 10 MG SUPP PR PRN (17:37)
[2017-01-25] MEDS ORDERED: POLYETHYLENE GLYCOL 3350 17 GM PKT PO PRN (17:37)
[2017-01-25] MEDS ORDERED: LACTULOSE 20 GM/30 ML UDCUP PO PRN (17:37)
[2017-01-25] MEDS ORDERED: MAGNESIUM HYDROXIDE 30 ML UDCUP PO PRN (17:37)
[2017-01-25] MEDS: SENNOSIDES/DOCUSATE SODIUM TAB PO SCH (20:20)
[2017-01-26] MEDS: PENICILLIN G POTASSIUM 4,000,000 UNIT in D5W 100 ML IV SCH ×6 (01:56→22:26)
[2017-01-26] MEDS: oxyCODONE IR 5 MG TAB PO PRN ×6 (02:00→21:35)
[2017-01-26] MEDS: CLINDAMYCIN 600 MG/DEXTROSE 50 ML IV SCH ×3 (06:53→21:31)
--- NOTE | 2017-01-26 09:52 | PCMIDPN ---
Assessment/Plan: Assessment/Plan: * Sepsis due to group A streptococcal bacteremia with bilateral hand cellulitis and tenosynovitis status post incision and drainage: Right hand with continued clinical improvement. Left hand more tender today and some residual erythema over left forearm. Suspect this would benefit from repeat incision and drainage to ensure purulent tenosynovitis fully drained. Findings have been reviewed with Dr. Ma. Continue penicillin and clindamycin with anticipated stop of clindamycin tomorrow. Kytococcus unlikely contributing to current findings. * Hepatitis-C: RNA pending. 01/26/17 09:51 01/26/17 09:52 Subjective: Patient with persistent left hand pain. Right hand feels clinically improved. Objective: Vital Signs Temp Pulse Resp BP Pulse Ox 36.7 C 89 16 157/86 H 96 01/26/17 07:19 01/26/17 07:19 01/26/17 07:19 01/26/17 07:19 01/26/17 07:19 Microbiology 01/23/17 09:10 Gram Stain - Final Wrist - Eswab 01/23/17 09:10 Gram Stain - Final Wrist - Eswab 01/23/17 09:10 Gram Stain - Final Wrist - Eswab 01/23/17 09:10 Gram Stain - Final Wrist - Eswab Laboratory Results 01/24/17 04:35 01/24/17 04:35 01/25/17 01/26/17 01/27/17 05:59 05:59 05:59 Intake Total 1874 2366 Output Total 9485 2315 Balance -1001 -179 Penicillin # 3 Clindamycin # 4 Antibiotics # 5 Hand cultures no growth except for 1 colony of Kytococcus Blood cultures 01/23/2017 no growth - Physical Exam General Appearance: alert, no apparent distress Extremities: inflammation (Right hand with marked decrease in erythema and edema with improved range of motion; no drainage from incision line other than some dried serosanguineous drainage on dressing; left hand with increased tenderness over dorsal aspect and persistent hemorrhagic bulla; serous drainage extending from bulla to incision line; improved range of motion of digits although still with incomplete flexion; faint erythema laterally over upper forearm) Abdomen: non-tender, No distended ICD10 Worksheet Patient Problems: Problems Problem Status Onset Homeless Acute IV drug user Acute Septic shock Acute
[2017-01-26] MEDS: SENNOSIDES/DOCUSATE SODIUM TAB PO SCH ×2 (10:04→21:31)
[2017-01-26] MEDS: GABAPENTIN 300 MG CAP PO SCH ×3 (10:05→21:31)
[2017-01-26] MEDS: ACETAMINOPHEN 500 MG TAB PO SCH ×3 (10:05→21:33)
--- NOTE | 2017-01-26 14:34 | HOSPPROG ---
Hospitalist Progress Note Assessment/Plan: Juanita Zhang is a 41 y/o female new to my care today with history of Iv methamphetamine /heroin abuse who presented to the ER with 2 days of bilateral hand swelling with associated fevers # bilateral hand cellulitis/tenosynovitis/abscess s/p I&D - abx per ID - currently pcn, clinda - vanco dc # septic shock ( resolved) due to streptococcal bacteremia- #solitary kidney -kidney function is stable/avoid nephrotoxic agents -has some proteinuria and hematuria #Pain due to the cellulitis cont oxy IR scheduled Tylenol gabapentin has worked well avoid ibuprofen due to solo kidney #anemia due to acute illness # IVDU - HIV negative hx of meth and heroine use (has used heroine in multiple years) # HCV ab+ -RNA pending # hypoNa - resolved #dvt prophylaxis mobile #Plan: spoke with CM / patient has been estranged from family in the [place] area. CM to try and see if they can reconnect. Patient is homeless. Cont current abx. Subjective: pain controled. No fevers or chills Objective: Vital Signs Temp Pulse Resp BP Pulse Ox 37.1 C 100 16 145/78 H 96 01/26/17 11:29 01/26/17 11:29 01/26/17 11:29 01/26/17 11:29 01/26/17 11:29 Microbiology 01/23/17 09:10 Gram Stain - Final Wrist - Eswab 01/23/17 09:10 Gram Stain - Final Wrist - Eswab 01/23/17 09:10 Gram Stain - Final Wrist - Eswab 01/23/17 09:10 Gram Stain - Final Wrist - Eswab Laboratory Results 01/24/17 04:35 01/24/17 04:35 01/25/17 01/26/17 01/27/17 05:59 05:59 05:59 Intake Total 1874 2366 Output Total 8925 3895 Balance -1001 -179 PT 15.8 SEC (12.0-15.0) H 01/21/17 Unknown INR 1.26 (0.83-1.16) H 01/21/17 Unknown Right hand with erythema and edema ; no drainage from incision line other than some dried serosanguineous drainage on dressing; left hand with increased tenderness over dorsal aspect and persistent hemorrhagic bulla; serous drainage extending from bulla to incision line; improved range of motion of digits although still with incomplete flexion; faint erythema laterally over upper forearm) - Physical Exam Constitutional: no apparent distress, appears nourished, not in pain Ears, Nose, Mouth, Throat: moist mucous membranes, hearing normal, ears appear normal, no oral mucosal ulcers Cardiovascular: regular rate and rhythym, no murmur, rub, or gallop Respiratory: no respiratory distress, no rales or rhonchi, clear to auscultation ICD10 Worksheet Patient Problems: Problems Problem Status Onset Homeless Acute IV drug user Acute Septic shock Acute
--- NOTE | 2017-01-26 17:30 | SOAPPROG ---
SOAP Progress Note Assessment/Plan: Assessment: Plan: 01/22/17 07:50 +blood cx's o/n Cellulitis vs septic arthritis both wrists/hands clinical improvement right, no change left will get IR to aspirate left wrist MRI's W/WO both wrist/hands to look for abscess today 01/22/17 20:13 Reviewed MRI's with DR parada no definitive fluid collection just extensive cellulitis discussed case with DR Sosa earlier Today, given the strep A cx's and only minimal clinical improvement with IVabx will proceed with Bilat I&D's of wrists and hands in am 01/26/17 17:29 S/P I&D Bilat hands Tuesday Left significantly improved RT slow to improve Will plan on repeat I&D 6am tomorrow Subjective: RT hand much improved left hand still hurting Objective: left hand dressing changed wound draining hand blistered drain has 20 ml cloudy fluid Vital Signs Temp Pulse Resp BP Pulse Ox 37.1 C 83 12 134/70 H 93 01/26/17 15:13 01/26/17 15:13 01/26/17 15:13 01/26/17 15:13 01/26/17 15:13 Microbiology 01/23/17 09:10 Gram Stain - Final Wrist - Eswab 01/23/17 09:10 Gram Stain - Final Wrist - Eswab 01/23/17 09:10 Gram Stain - Final Wrist - Eswab 01/23/17 09:10 Gram Stain - Final Wrist - Eswab Laboratory Results 01/24/17 04:35 01/24/17 04:35 01/25/17 01/26/17 01/27/17 05:59 05:59 05:59 Intake Total 1874 2366 Output Total 8151 6723 Balance -1001 -179 PT 15.8 SEC (12.0-15.0) H 01/21/17 Unknown INR 1.26 (0.83-1.16) H 01/21/17 Unknown ICD10 Worksheet Patient Problems: Problems Problem Status Onset Homeless Acute IV drug user Acute Septic shock Acute
[2017-01-27] MEDS: LORazepam 0.5 MG TAB PO PRN (01:20)
[2017-01-27] MEDS: PENICILLIN G POTASSIUM 4,000,000 UNIT in D5W 100 ML IV SCH ×6 (02:33→21:13)
[2017-01-27] MEDS: oxyCODONE IR 5 MG TAB PO PRN ×4 (02:33→22:52)
[2017-01-27] MEDS ORDERED: MIDAZOLAM 2 MG/2 ML VIAL ONE (05:53)
[2017-01-27] MEDS: CLINDAMYCIN 600 MG/DEXTROSE 50 ML IV SCH ×2 (06:00→13:15)
[2017-01-27] MEDS ORDERED: PROPOFOL/EMULSION 500 MG/50 ML BOTTLE IV ONE (06:03)
[2017-01-27] MEDS ORDERED: fentaNYL 100 MCG/2 ML INJ ONE ×2 (06:03→06:33)
[2017-01-27] MEDS ORDERED: BUPIVACAINE 0.5% 30 ML SDV ONE (06:33)
--- NOTE | 2017-01-27 07:05 | POSTOPPROG ---
Post Op Note Date of Operation: 01/27/17 Surgeon: Petey Ma Anesthesiologist: carmen Anesthesia: GET(General Endotracheal) Pre-op Diagnosis: hand infection Post-op Diagnosis: same Indication: infection Procedure: I&D left hand Findings: no purulence, cloudy fluid only Inf/Abcess present in the surg proc area at time of surgery?: No EBL: Minimal Complications: none
--- NOTE | 2017-01-27 07:54 | GOP ---
[f rep st] OPERATIVE REPORT DATE OF OPERATION: 01/27/2017 SURGEON: Petey Ma MD ANESTHESIA: General. ANESTHESIOLOGIST: Dr. Garcia. PREOPERATIVE DIAGNOSIS: Infection, left hand. POSTOPERATIVE DIAGNOSIS: Infection, left hand. PROCEDURE PERFORMED: Irrigation and debridement, left hand, including skin, soft-tissue, muscle and tendon. FINDINGS: INDICATIONS: The patient is a 41-year-old female who had injected drugs into her hands last week. She has undergone one I and D last Tuesday. Left hand has continued to show some swelling and some d rainage. Right hand has improved, and we decided to repeat an I and D on the left hand. DESCRIPTION OF PROCEDURE: After appropriate informed consent was obtained, patient was taken to the operating room and placed supine on the operating table. A time-out was performed. Patient was id entified. Correct site was identified. She did not receive any additional antibiotics. She is cur rently on an antibiotic course. Following general endotracheal tube anesthesia, left upper extremit y was prepped and draped in usual sterile fashion. The wound was explored. There was no necrotic t issue. There was just some cloudy fluid. No further purulence extended up. There was some blister ing on her fingers that was broken up, and I did clean those blisters up. We then irrigated the kel sum of her hand with 6 L of pulsatile lavage. I then loosely closed the skin with 3-[address] ess[address] her hand with antibiotic ointment over the site of the ruptured blisters, and then placed a lo ose sterile dressing over the rest of her hand. I placed 10 mL of 0.5% Marcaine plain around the wr ist. She was awakened from anesthesia and taken to the recovery room in satisfactory condition. Th ere were no immediate intraoperative complications. COMPLICATIONS: None. DRAINS: None. /[id number]/MODL
[2017-01-27] MEDS: GABAPENTIN 300 MG CAP PO SCH ×3 (08:11→21:00)
[2017-01-27] MEDS: ACETAMINOPHEN 500 MG TAB PO SCH ×3 (08:12→21:01)
[2017-01-27] MEDS: SENNOSIDES/DOCUSATE SODIUM TAB PO SCH ×2 (08:47→21:01)
--- NOTE | 2017-01-27 13:13 | PCMIDPN ---
Assessment/Plan: # Sepsis due to group A streptococcal bacteremia with bilateral hand cellulitis and tenosynovitis s/p multiple I&D, last washout this AM, cloudy fluid with still noted. Did not examine hands this morning. She has some persistent erythema on the lateral aspect of her forearm. Leukocytosis generally improved but no labs since 01/24 --DC clindamycin --continue IV penicillin, tolerating without reaction --repeat labs in AM --duration of therapy at least 2 weeks, will have to be monitored (no home IV antibiotics) due to h/o IVDU # HCV: Very low-grade viremia = 92, did not discuss with patient today. HIV negative # IVDU: clean for >20 years with recent lapse to IV Meth (former heroin) Medication Clindamycin IV, day 5 Penicillin IV day 4 Microbiology 01/21 blood cultures 2 set group a strep 01/23 blood cultures 2 sets NGTD 01/23 surg cx neg except 1 colony kytococcus (contaminant) Subjective: Patient is very tearful stating she is grateful for us taking care of her. Swearing that she will not be using IV drugs again. Denies diarrhea, itching, rash. Patient reports significant improved range of motion of her right hand Objective: Vital Signs Temp Pulse Resp BP Pulse Ox 36.9 C 79 18 162/100 H 98 01/27/17 11:48 01/27/17 11:48 01/27/17 11:48 01/27/17 11:48 01/27/17 11:48 Microbiology 01/23/17 09:10 Gram Stain - Final Wrist - Eswab 01/23/17 09:10 Gram Stain - Final Wrist - Eswab 01/23/17 09:10 Gram Stain - Final Wrist - Eswab 01/23/17 09:10 Gram Stain - Final Wrist - Eswab Laboratory Results 01/24/17 04:35 01/24/17 04:35 01/26/17 01/27/17 01/28/17 05:59 05:59 05:59 Intake Total 2366 850 500 Output Total 5362 0110 3 Cdgpxzq -875 -6365 237 - Physical Exam General Appearance: alert, no apparent distress Respiratory: lungs clear, No accessory muscle use Cardiac/Chest: regular rate, rhythm Extremities: swelling, erythema, other (Dressings in place bilateral hand disease on left greater than right with erythema on the left forearm. Hands and fingers diffusely swollen) Abdomen: normal bowel sounds, non-tender, soft Skin: erythema (Left forearm), other (Extensive tattoos), No rash Neuro/Psych: alert, normal mood/affect, oriented x 3 - Line/s RUE PICC Lines: No drainage, No erythema - Time Spent With Patient Time Spent with Patient: greater than 25 minutes Time Spent with Patient: Greater than 25 minutes spent on this patients care, greater than 50% of time spent counseling, educating, and coordinating care regarding the above mentioned plan. ICD10 Worksheet Patient Problems: Problems Problem Status Onset Homeless Acute IV drug user Acute Septic shock Acute
--- NOTE | 2017-01-27 13:17 | HOSPPROG ---
Hospitalist Progress Note Assessment/Plan: Juanita Zhang is a 41 y/o female with history of Iv methamphetamine /heroin abuse who presented to the ER with 2 days of bilateral hand swelling with associated fevers # bilateral hand cellulitis/tenosynovitis/abscess s/p I&D ( 01/23/2017 ) with return to the operating room on 01/27/2017 for repeat irrigation and debridement of the left hand including skin, soft tissue, muscle, and tendon - abx per ID - currently pcn, clinda - vanco dc # septic shock ( resolved) due to streptococcal bacteremia- #solitary kidney -kidney function is stable/avoid nephrotoxic agents -has some proteinuria and hematuria #Pain due to the cellulitis cont oxy IR scheduled Tylenol gabapentin has worked well avoid ibuprofen due to solo kidney #anemia due to acute illness # IVDU - HIV negative hx of meth and heroine use (has used heroine in multiple years) # HCV with viral load of 92 - recommend outpatient consideration for treatment # hypoNa - resolved #dvt prophylaxis mobile #Plan: spoke with CM / patient has been estranged from family in the [place] area. CM to try and see if they can reconnect. Patient is homeless. Cont current abx. Subjective: Pain controlled postoperatively. She denies fevers or chills. No new complaints. Objective: Vital Signs Temp Pulse Resp BP Pulse Ox 36.9 C 79 18 162/100 H 98 01/27/17 11:48 01/27/17 11:48 01/27/17 11:48 01/27/17 11:48 01/27/17 11:48 Microbiology 01/23/17 09:10 Gram Stain - Final Wrist - Eswab 01/23/17 09:10 Gram Stain - Final Wrist - Eswab 01/23/17 09:10 Gram Stain - Final Wrist - Eswab 01/23/17 09:10 Gram Stain - Final Wrist - Eswab Laboratory Results 01/24/17 04:35 01/24/17 04:35 01/26/17 01/27/17 01/28/17 05:59 05:59 05:59 Intake Total 2366 850 500 Output Total 6147 9905 3 Balance -179 -1655 497 PT 15.8 SEC (12.0-15.0) H 01/21/17 Unknown INR 1.26 (0.83-1.16) H 01/21/17 Unknown - Physical Exam Constitutional: no apparent distress, appears nourished, not in pain Cardiovascular: regular rate and rhythym, no murmur, rub, or gallop Respiratory: no respiratory distress, no rales or rhonchi, clear to auscultation Skin: other ( clean dry dressing on both hands) Musculoskeletal: other ( there is no pain active range of motion of the elbows) ICD10 Worksheet Patient Problems: Problems Problem Status Onset IV drug user Acute Homeless Acute Septic shock Acute
[2017-01-28] MEDS: oxyCODONE IR 5 MG TAB PO PRN ×6 (02:10→23:31)
[2017-01-28] MEDS: LORazepam 0.5 MG TAB PO PRN (02:11)
[2017-01-28] MEDS: PENICILLIN G POTASSIUM 4,000,000 UNIT in D5W 100 ML IV SCH ×6 (02:38→21:54)
[2017-01-28 06:17] LABS: ADD DIFF? YES; ADD MORPH? NO; ADD SCAN? NO; ATYPICAL LYMPHOCYTE FLAG 30 (0-99); FRAGMENT RBC FLAG 0 (0-99); HEMATOCRIT 31.5 % (38.0-47.0); HEMOGLOBIN 10.2 g/dL (12.6-16.3); LEFT SHIFT FLG 80 (0-99); LIPEMIA HEMOLYSIS FLAG 80 (0-99); MEAN CELL HEMOGLOBIN 28.8 pg (27.9-34.1); MEAN CELL HEMOGLOBIN CONCENTR. 32.4 g/dL (32.4-36.7); MEAN PLATELET VOLUME 10.2 fL (8.7-11.7); PLATELET CLUMPS FLAG 0 (0-99); PLATELET COUNT 422 10^3/uL (150-400); RED BLOOD CELL COUNT 3.54 10^6/uL (4.18-5.33); RED CELL DISTRIBUTION WIDTH 13.8 % (11.5-15.2)
[2017-01-28 07:06] LABS: PLATELET ESTIMATE INCREASED (ADEQ)
[2017-01-28 07:07] LABS: POLYCHROMASIA 1+
[2017-01-28 07:08] LABS: ANION GAP 5 mEq/L (8-16); CALCIUM 9.3 mg/dL (8.5-10.4); CARBON DIOXIDE 31 mEq/l (22-31); CHLORIDE 99 mEq/L (97-110); CREATININE 0.7 mg/dL (0.6-1.0); GLOMERULAR FILTRATION RATE > 60; GLUCOSE 91 mg/dL (70-100); POTASSIUM 5.6 mEq/L (3.5-5.2); SODIUM 135 mEq/L (134-144)
[2017-01-28] MEDS: GABAPENTIN 300 MG CAP PO SCH ×3 (08:33→21:54)
[2017-01-28] MEDS: SENNOSIDES/DOCUSATE SODIUM TAB PO SCH ×2 (08:34→21:54)
[2017-01-28] MEDS: ACETAMINOPHEN 500 MG TAB PO SCH ×3 (08:34→21:54)
--- NOTE | 2017-01-28 09:12 | PCMIDPN ---
Assessment/Plan: 1. Group a strep bacteremia with necrotizing cellulitis/tenosynovitis of bilateral hands/wrists status post multiple washouts; most recent of the left hand yesterday: Patient continues to improve. Hopefully she will not require additional washouts. Continue penicillin as is. Clindamycin has been stopped. Discussed the importance of left arm elevation. Needs to remain in house for duration of treatment. 2. Chronic hepatitis-C: Astonishingly low-grade viremia. No action at this time, as she cannot be treated until she is sober. Will obtain hepatitis a total antibody to ensure immunity in the setting of chronic hepatitis C and start vaccination series if she is not immune. 3. Solitary kidney: Creatinine stable. 4. Vaccines: Patient received a Tdap while in-house. Hepatitis a total antibody to ensure immunity to this entity in the setting of chronic hepatitis C as outlined above. Subjective: Feels much better. In good spirits. Denies diarrhea. Willing to take the bandages off for me. Status post washout yesterday, of left hand. Objective: Penicillin 4 million units IV q.4 hours day 5. Antibiotics day 7 Afebrile T-max 37.3degrees Vital Signs Temp Pulse Resp BP Pulse Ox 37.3 C 77 18 108/61 93 01/28/17 07:19 01/28/17 07:19 01/28/17 07:19 01/28/17 07:19 01/28/17 07:19 Microbiology 01/23/17 04:55 Blood Culture - Final Blood 01/23/17 09:10 Gram Stain - Final Wrist - Eswab 01/23/17 09:10 Gram Stain - Final Wrist - Eswab 01/23/17 09:10 Gram Stain - Final Wrist - Eswab 01/23/17 09:10 Gram Stain - Final Wrist - Eswab Laboratory Results 01/28/17 05:45 01/28/17 05:45 01/27/17 01/28/17 01/29/17 05:59 05:59 05:59 Intake Total 850 800 Output Total 2505 3 Balance -0483 797 No new microbiology. Blood cultures have sterilized - Physical Exam General Appearance: alert, no apparent distress EENT: pharynx normal Extremities: other (Dorsum of right hand with approximately 5 cm vertical incision that is clean. Very minimal swelling. No erythema. Patient is able to flex and extend her fingers and wrist without difficulty. The left hand dorsum is notable for an extensive vertical incision that appears clean. There is some surrounding ready erythema but no fluctuance. She does have some denuded epidermis at the site of previous blisters on the 2nd 3rd and 4th fingers, dorsal aspect. This appears clean. She still has some significant swelling of her hand and it is difficult to flex and extend her fingers and wrist. No obvious new blisters. There is no erythema that I can see on the lateral aspect of her left arm. No epitrochlear lymphadenopathy or axillary lymphadenopathy on the left arm.) Abdomen: non-tender, soft Skin: other (Multiple tattoos) ICD10 Worksheet Patient Problems: Problems Problem Status Onset Homeless Acute IV drug user Acute Septic shock Acute
[2017-01-28 11:33] VITALS: RESP 16
--- NOTE | 2017-01-28 16:27 | HOSPPROG ---
Hospitalist Progress Note Assessment/Plan: Juanita Zhang is a 41 y/o female with history of Iv methamphetamine /heroin abuse who presented to the ER with 2 days of bilateral hand swelling with associated fevers # bilateral hand cellulitis/tenosynovitis/abscess s/p I&D ( 01/23/2017 ) with return to the operating room on 01/27/2017 for repeat irrigation and debridement of the left hand including skin, soft tissue, muscle, and tendon - abx per ID - currently pcn, clinda - vanco dc #hyperkalemia ?spurious -repeat in AM # septic shock ( resolved) due to streptococcal bacteremia- #solitary kidney -kidney function is stable/avoid nephrotoxic agents -has some proteinuria and hematuria #Pain due to the cellulitis cont oxy IR scheduled Tylenol gabapentin has worked well avoid ibuprofen due to solo kidney #anemia due to acute illness # IVDU - HIV negative hx of meth and heroine use (has used heroine in multiple years) # HCV with viral load of 92 - recommend outpatient consideration for treatment # hypoNa - resolved #dvt prophylaxis mobile #Plan: spoke with CM / patient has been estranged from family in the [place] area. CM to try and see if they can reconnect. Patient is homeless. Cont current abx. Subjective: pain controlled. no fevers or chills. no acute complaints Objective: Vital Signs Temp Pulse Resp BP Pulse Ox 36.8 C 80 16 112/62 94 01/28/17 15:34 01/28/17 15:34 01/28/17 15:34 01/28/17 15:34 01/28/17 15:34 Microbiology 01/23/17 08:33 Blood Culture - Final Blood 01/23/17 09:10 Gram Stain - Final Wrist - Eswab 01/23/17 09:10 Gram Stain - Final Wrist - Eswab 01/23/17 09:10 Gram Stain - Final Wrist - Eswab 01/23/17 09:10 Gram Stain - Final Wrist - Eswab 01/23/17 04:55 Blood Culture - Final Blood Laboratory Results 01/28/17 05:45 01/28/17 05:45 01/27/17 01/28/17 01/29/17 05:59 05:59 05:59 Intake Total 850 800 Output Total 2505 3 Balance -1655 797 PT 15.8 SEC (12.0-15.0) H 01/21/17 Unknown INR 1.26 (0.83-1.16) H 01/21/17 Unknown - Physical Exam Constitutional: no apparent distress, appears nourished, not in pain Ears, Nose, Mouth, Throat: moist mucous membranes, hearing normal, ears appear normal, no oral mucosal ulcers Cardiovascular: regular rate and rhythym, no murmur, rub, or gallop Respiratory: no respiratory distress, no rales or rhonchi, clear to auscultation Gastrointestinal: normoactive bowel sounds, soft, non-tender abdomen, no palpable masses, No guarding, No rebound ICD10 Worksheet Patient Problems: Problems Problem Status Onset IV drug user Acute Homeless Acute Septic shock Acute
[2017-01-29] MEDS: PENICILLIN G POTASSIUM 4,000,000 UNIT in D5W 100 ML IV SCH ×6 (02:23→21:49)
[2017-01-29] MEDS: oxyCODONE IR 5 MG TAB PO PRN ×7 (02:26→21:50)
[2017-01-29 05:57] LABS: ANION GAP 8 mEq/L (8-16); CALCIUM 9.3 mg/dL (8.5-10.4); CARBON DIOXIDE 25 mEq/l (22-31); CHLORIDE 100 mEq/L (97-110); CREATININE 0.7 mg/dL (0.6-1.0); GLOMERULAR FILTRATION RATE > 60; GLUCOSE 127 mg/dL (70-100); POTASSIUM 4.6 mEq/L (3.5-5.2); SODIUM 133 mEq/L (134-144)
[2017-01-29] MEDS: ACETAMINOPHEN 500 MG TAB PO SCH ×3 (08:43→21:49)
[2017-01-29] MEDS: GABAPENTIN 300 MG CAP PO SCH ×3 (08:43→21:50)
[2017-01-29] MEDS: SENNOSIDES/DOCUSATE SODIUM TAB PO SCH ×2 (08:43→21:50)
[2017-01-29] MEDS ORDERED: HEPATITIS A VIRUS VACCINE 1,440 UNIT/ML SYRINGE IM ONE (10:54)
--- NOTE | 2017-01-29 11:04 | PCMIDPN ---
Assessment/Plan: 1. Group a strep bacteremia with necrotizing cellulitis/tenosynovitis of bilateral hands/wrists status post multiple washouts; most recent of the left hand 2 days ago: Right wrist with marked improvement. Left wrist and dorsum of the hand continue to be warm/tender, but overall swelling is improving. She continues to have difficulty with flexion and extension of her fingers. Hopefully will not require additional washout. I explained to the patient today that she needs to stop changing her dressings herself, touching her wounds, and wiping them with food napkins. I explained to her that she could introduce additional bacteria into her wounds. She expressed understanding. I also asked the nursing staff to make sure that they are doing the dressing changes. 2. Chronic hepatitis-C: Astonishingly low-grade viremia. No action at this time, as she cannot be treated until she is sober. Hepatitis a total antibody negative. Will await hepatitis-B surface antibody. If not immune, will start Twinrix vaccination series. 3. Solitary kidney: Creatinine stable. 4. Vaccines: Patient received a Tdap while in-house. Hepatitis-B surface antibody pending. If not immune, will give Twinrix 1. While in-house. Subjective: When I walked in the room, the patient's hands were undressed, and she was actively touching the wounds on her left hand, and wiping this serous drainage from the incision with a food napkin from her tray. Proceeded to have a long conversation with her about the importance of not touching her wounds, and having the nurses change her dressings moving forward. She expressed frustration about this, and told me that her nurse was supposed to come back to redressed her wounds and this had not been done. I told her that I would have a conversation, and make sure that dressings were placed appropriately, but she could not change them herself moving forward. She continues to have discomfort flexing her fingers on the left hand, and warmth and tenderness along the incision. He continues to have mild to moderate serous drainage from the incision. Objective: Penicillin for g IV q.4 hours day 6. (antibiotics day 8) Afebrile Vital Signs Temp Pulse Resp BP Pulse Ox 36.8 C 93 16 129/70 H 96 01/29/17 07:52 01/29/17 07:52 01/29/17 07:52 01/29/17 07:52 01/29/17 07:52 Microbiology 01/23/17 08:33 Blood Culture - Final Blood 01/23/17 09:10 Gram Stain - Final Wrist - Eswab 01/23/17 09:10 Gram Stain - Final Wrist - Eswab 01/23/17 09:10 Gram Stain - Final Wrist - Eswab 01/23/17 09:10 Gram Stain - Final Wrist - Eswab 01/23/17 04:55 Blood Culture - Final Blood Laboratory Results 01/28/17 05:45 01/29/17 05:15 01/28/17 01/29/17 01/30/17 05:59 05:59 05:59 Intake Total 800 Output Total 3 Balance 797 Hepatitis a total antibody negative hepatitis-B surface antibody pending - Physical Exam General Appearance: alert, no apparent distress Extremities: other (Right wrist incision with sutures in place. No erythema or discharge for along the incision. She is able to flex her fingers and her wrist without difficulty. Left hand dorsum continues to be warm with some surrounding erythema along the incision. Minimal serous drainage noted. Overall swelling has improved. Difficulty flexing her fingers and her wrist. Denuded skin along dorsum of fingers were blisters have been cleaned.) ICD10 Worksheet Patient Problems: Problems Problem Status Onset Homeless Acute IV drug user Acute Septic shock Acute
--- NOTE | 2017-01-29 11:17 | HOSPPROG ---
Hospitalist Progress Note Assessment/Plan: Juanita Zhang is a 41 y/o female with history of Iv methamphetamine /heroin abuse who presented to the ER with 2 days of bilateral hand swelling with associated fevers # bilateral hand cellulitis/tenosynovitis/abscess s/p I&D ( 01/23/2017 ) with return to the operating room on 01/27/2017 for repeat irrigation and debridement of the left hand including skin, soft tissue, muscle, and tendon - abx per ID - currently pcn, clinda - vanco dc #hyperkalemia ?spurious -repeat in AM # septic shock ( resolved) due to streptococcal bacteremia- #solitary kidney -kidney function is stable/avoid nephrotoxic agents -has some proteinuria and hematuria #Pain due to the cellulitis cont oxy IR scheduled Tylenol gabapentin has worked well avoid ibuprofen due to solo kidney #anemia due to acute illness # IVDU - HIV negative hx of meth and heroine use (has used heroine in multiple years) # HCV with viral load of 92 - recommend outpatient consideration for treatment # hypoNa - resolved #dvt prophylaxis mobile #Plan: spoke with CM / patient has been estranged from family in the [place] area. CM to try and see if they can reconnect. Patient is homeless. Cont current abx. Subjective: patient has been removing her dressings. reports numbness in her left 3/4 digits with decreased rom at the mcp. no fevers or chills. pain controlled Objective: Vital Signs Temp Pulse Resp BP Pulse Ox 36.8 C 93 16 129/70 H 96 01/29/17 07:52 01/29/17 07:52 01/29/17 07:52 01/29/17 07:52 01/29/17 07:52 Microbiology 01/23/17 08:33 Blood Culture - Final Blood 01/23/17 09:10 Gram Stain - Final Wrist - Eswab 01/23/17 09:10 Gram Stain - Final Wrist - Eswab 01/23/17 09:10 Gram Stain - Final Wrist - Eswab 01/23/17 09:10 Gram Stain - Final Wrist - Eswab 01/23/17 04:55 Blood Culture - Final Blood Laboratory Results 01/28/17 05:45 01/29/17 05:15 01/28/17 01/29/17 01/30/17 05:59 05:59 05:59 Intake Total 800 Output Total 3 Balance 797 PT 15.8 SEC (12.0-15.0) H 01/21/17 Unknown INR 1.26 (0.83-1.16) H 01/21/17 Unknown - Physical Exam Constitutional: no apparent distress, appears nourished, not in pain Cardiovascular: regular rate and rhythym, no murmur, rub, or gallop Respiratory: no respiratory distress, no rales or rhonchi, clear to auscultation Skin: other (persistent edema and erythema over left 3/4 mcpp with decreased rom in flexion; right hand appears to be healing well) ICD10 Worksheet Patient Problems: Problems Problem Status Onset IV drug user Acute Homeless Acute Septic shock Acute
[2017-01-29 14:08] LABS: HEPATITIS Bs Ab QUANT <5.0 mIU/mL
[2017-01-30] MEDS: oxyCODONE IR 5 MG TAB PO PRN ×2 (01:55→06:20)
[2017-01-30] MEDS: PENICILLIN G POTASSIUM 4,000,000 UNIT in D5W 100 ML IV SCH ×2 (01:55→06:18)
[2017-01-30 07:33] VITALS: BP 110/58; PULSE 95; TEMP 98.6; O2SAT 97
[2017-01-30] MEDS: ACETAMINOPHEN 500 MG TAB PO SCH (08:06)
[2017-01-30] MEDS: SENNOSIDES/DOCUSATE SODIUM TAB PO SCH (08:07)
[2017-01-30] MEDS: GABAPENTIN 300 MG CAP PO SCH (08:07)
--- NOTE | 2017-01-30 10:47 | PCMIDPN ---
Assessment/Plan: 01/30/17 10:45 Subjective: Unfortunately, the patient left the floor this morning without being noticed. She has a PICC line in place. The police are out looking for her now. I am happy to resume taking care of her once she has been found. Objective: Vital Signs Temp Pulse Resp BP Pulse Ox 37 C 95 16 110/58 L 97 01/30/17 07:32 01/30/17 07:32 01/30/17 07:32 01/30/17 07:32 01/30/17 07:32 Laboratory Results 01/28/17 05:45 01/29/17 05:15 01/29/17 01/30/17 01/31/17 05:59 05:59 05:59 Intake Total 750 Balance 750 ICD10 Worksheet Patient Problems: Problems Problem Status Onset Homeless Acute IV drug user Acute Septic shock Acute
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
== END 2017-01-30 10:51 | disposition left against medical advice (07) | DRG 853 ==
LOC: EDUNIT# → F3N 14:40 → F3E 01-25 17:37
PROVIDERS: ADMIT Student in an Organized Health Care Education/Training Program; ATTEND Family Medicine
PROC: 02HV33Z Insertion of Infusion Device into Superior Vena Cava, Percutaneous Approach (ICD-10-PCS; 2017-01-21)
PROC: 0L980ZZ Drainage of Left Hand Tendon, Open Approach (ICD-10-PCS; principal; 2017-01-23 08:08)
PROC: 0R9N0ZZ Drainage of Right Wrist Joint, Open Approach (ICD-10-PCS; principal; 2017-01-23 08:08)
PROC: 0L970ZZ Drainage of Right Hand Tendon, Open Approach (ICD-10-PCS; principal; 2017-01-23 08:08)
PROC: 0R9P0ZZ Drainage of Left Wrist Joint, Open Approach (ICD-10-PCS; principal; 2017-01-23 08:08)
PROC: 0K9 Muscles, Drainage (ICD-10-PCS; 2017-01-27)
DX: A40.0 Sepsis due to streptococcus, group A (principal); R65.21 Severe sepsis with septic shock; L02.511 Cutaneous abscess of right hand; L02.512 Cutaneous abscess of left hand; L03.113 Cellulitis of right upper limb; L03.114 Cellulitis of left upper limb; M00.232 Other streptococcal arthritis, left wrist; M00.23 Other streptococcal arthritis, wrist; M65.841 Other synovitis and tenosynovitis, right hand; M65.842 Other synovitis and tenosynovitis, left hand; E87.1 Hypo-osmolality and hyponatremia; F15.10 Other stimulant abuse, uncomplicated; B18.2 Chronic viral hepatitis C; M32.9 Systemic lupus erythematosus, unspecified; K50.90 Crohn's disease, unspecified, without complications; Z59.0 Homelessness
CPT/HCPCS: 86708-90; 96365; A9585; C1751; G0472; J1100; J1170; J1335; J1885; J2060; J2185; J2250; J2405; J2540; J2704; J2997; J3010; J3370

== ENCOUNTER 2017-01-30 11:57 | Inpatient (IN) | payer MEDICAID ==
--- NOTE | 2017-01-30 12:00 | EDPHY ---
H & P Time Seen by Provider: 01/30/17 12:00 Source: Patient - Medical/Surgical History Hx Asthma: No Hx Chronic Respiratory Disease: No Hx Diabetes: No Hx Cardiac Disease: No Hx Renal Disease: No Hx Cirrhosis: No Hx Alcoholism: No Hx HIV/AIDS: No Hx Splenectomy or Spleen Trauma: No Other PMH: Lupus, Chrohns. - Social History Smoking Status: Light smoker Constitutional: Initial Vital Signs Temperature (C) 36.8 C 01/30/17 12:02 Heart Rate 110 H 01/30/17 12:02 Respiratory Rate 16 01/30/17 12:02 Blood Pressure 142/127 H 01/30/17 12:02 O2 Sat (%) 96 01/30/17 12:02 O2 Delivery Mode Room Air Allergies/Adverse Reactions: ampicillin Allergy (Uncoded 01/25/17 17:57) celexa Allergy (Uncoded 01/25/17 17:55) cillins Allergy (Uncoded 01/25/17 17:57) codeine Allergy (Uncoded 01/25/17 17:56) flexeril Allergy (Uncoded 01/25/17 17:56) lexapro Allergy (Uncoded 01/25/17 17:56) tramadol Allergy (Uncoded 01/25/17 17:57) Home Medications: Medication Instructions Recorded NK [No Known Home Meds] 01/21/17 Medical Decision Making ED Course/Re-evaluation: CHIEF COMPLAINT: MRSA both hands HISTORY OF PRESENT ILLNESS: The patient is a 41 year old female with who absconded from the hospital 2 hours ago returns for readmission. The patient was admitted for MRSA on both hands. She has a PICC line placed for antibiotic treatment. The patient has a history of methamphetamine abuse. She denies meth use while absconding from the hospital. The patient would like to be readmitted to the hospital. REVIEW OF SYSTEMS: A 10 point review of systems was performed and is negative with the exception of the elements mentioned in the history of present illness. PHYSICAL EXAM: HR, BP, O2 Sat, RR. Temp noted General Appearance: Alert, well hydrated, appropriate, and non-toxic appearing. Head: Atraumatic without scalp tenderness or obvious injury Eyes: Pupils equal, round, reactive to light and accommodation, EOMI, no trauma , no injection. Extremities: Both hands are wrapped in dressing. I did not remove the dressing. Neurological: Alert, appropriate, and interactive. The patient has normal DTRs and non-focal cranial nerves, motor, sensory, and cerebellar exam. Skin: No rashes, good turgor, no nodules on palpation. Past medical history: MRSA, Lupus, Crohn's disease. Past surgical history: Denies. Family history: Noncontributory. Social history: Homeless. Methamphetamine abuse. MEDICAL DECISION MAKING: The patient is a 41 year old male with MRSA on both hands who absconded from the hospital 2 hours ago. The patient returns and would like to be readmitted. She has a PICC line in place. She denies meth use while absconding from the hospital. Plan for readmission. The hospitalist has been paged. Dr. Patino is here to readmit the patient. Departure - Departure Disposition: Home, Routine, Self-Care Clinical Impression: MRSA (methicillin resistant Staphylococcus aureus) Condition: Fair Report Scribed for: Wilder Lay Report Scribed by: Karla Regan Date of Report: 01/30/17 Time of Report: 12:02
[2017-01-30] MEDS ORDERED: ONDANSETRON 4 MG/2 ML VIAL IVP PRN (12:29)
[2017-01-30] MEDS ORDERED: oxyCODONE IR 5 MG TAB PO PRN (12:29)
--- NOTE | 2017-01-30 13:08 | GHP ---
[f rep st] HISTORY AND PHYSICAL DATE OF ADMISSION: 01/30/2017 CHIEF COMPLAINT: Hand infection. HISTORY OF PRESENT ILLNESS: This is a 41-year-old female with a history of IV drug abuse who was ad mitted to [facility] on 01/21/2017 and treated for bilateral hand septic arthritis, cellulitis, and tenosynovitis. The patient left the hospital on the morning of 01/30/2017 without t elling anyone in an effort to find her belongings, which she tells me are gone. She denies using an y illicit drugs since her discharge earlier today. The patient tells me that she does want to get better. She agrees to not leave the hospital again. She denies any fevers or chills. She does report increased range of motion in her left hand at her MCPs over the past day. PAST MEDICAL HISTORY: 1. MRSA. 2. Lymphoma as a child. 3. Hepatitis C, newly diagnosed. PAST SURGICAL HISTORY: 1. Leg debridement. 2. Bilateral hand and wrist I and D done by Dr. Ma on 01/23/2017, with return to the [facility] room on 01/27/2017. HOME MEDICATIONS: Reviewed. ALLERGIES: Refer to drug allergies in [employer] SOCIAL HISTORY: She is homeless. She denies any alcohol use. She reports using IV methamphetamine . FAMILY HISTORY: Reviewed and noncontributory. REVIEW OF SYSTEMS: A comprehensive 10-point review of systems was done and is negative, except for as mentioned in the HPI. PHYSICAL EXAMINATION: VITAL SIGNS: Blood pressure 142/127, heart rate 110, respiratory rate 16, O2 sat 96% on room air, temperature afebrile. GENERAL: No acute distress. HEAD: Normocephalic, atr aumatic. EYES: PERRLA. Sclerae anicteric. MOUTH: Moist mucous membranes. NECK: Supple. No ly mphadenopathy. CARDIOVASCULAR: S1, S2. Tachycardic. No JVD. No lower extremity edema. PULMONAR Y: Lungs are clear. No wheezes, rales, or rhonchi. ABDOMEN: Soft, nontender, nondistended. No g uarding or rebound tenderness. Normoactive bowel sounds. EXTREMITIES: No clubbing or cyanosis. N EURO: Cranial nerves 2-12 grossly intact. No focal motor or sensory deficits. BILATERAL HANDS: T he left hand has improved range of motion in the MCPs. There is persistent erythema over the 3rd an d 4th MCP, with no obvious fluctuance or abscess. Her right hand appears to be healing well with green rgical sutures in place. ASSESSMENT AND PLAN: This is a 41-year-old female with a history of methamphetamine abuse and methi cillin-resistant Staphylococcus aureus who left the hospital earlier this morning without telling an yone. She came back for further treatment for: 1. Bilateral hand group A strep bacteremia with necrotizing cellulitis/tenosynovitis, status post m ultiple washouts. Plan: The patient will be readmitted to the hospital where she will continue IV antibiotics and wound care. Dr. Vika Mendoza from infectious disease has been consulted and will s ee the patient later on today. 2. Hypertension and tachycardia, which I suspect was probably from amphetamine abuse while leaving the hospital. Plan: Monitor for signs and symptoms of withdrawal. We will consider Ativan if her blood pressure continues to be elevated. 3. Newly diagnosed hepatitis C. Plan: Recommend consideration for outpatient treatment once she d emonstrates sobriety. 4. History of solitary kidney with normal renal function. Plan: Avoid nephrotoxins and monitor. /[id number]/MODL
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
[2017-01-30] MEDS: PENICILLIN G POTASSIUM 4,000,000 UNIT in D5W 100 ML IV SCH ×3 (15:00→22:15)
[2017-01-30 16:23] LABS: PHENCYCLIDINE URINE BCH < 6 ng/ml (NEGATIVE); PHENCYCLIDINE URINE BCH NEGATIVE (NEGATIVE); TETRAHYDROCANNABINOL URINE 7 ng/mL (NEGATIVE); TETRAHYDROCANNABINOL URINE NEGATIVE (NEGATIVE)
[2017-01-30] MEDS: oxyCODONE IR 5 MG TAB PO PRN ×2 (18:03→22:15)
[2017-01-31] MEDS: PENICILLIN G POTASSIUM 4,000,000 UNIT in D5W 100 ML IV SCH ×6 (02:42→21:34)
[2017-01-31] MEDS: oxyCODONE IR 5 MG TAB PO PRN ×5 (02:42→21:34)
[2017-01-31 05:54] LABS: ADD DIFF? YES; ADD MORPH? NO; ADD SCAN? NO; ATYPICAL LYMPHOCYTE FLAG 40 (0-99); FRAGMENT RBC FLAG 0 (0-99); HEMATOCRIT 31.4 % (38.0-47.0); HEMOGLOBIN 10.1 g/dL (12.6-16.3); LEFT SHIFT FLG 30 (0-99); LIPEMIA HEMOLYSIS FLAG 80 (0-99); MEAN CELL HEMOGLOBIN 29.3 pg (27.9-34.1); MEAN CELL HEMOGLOBIN CONCENTR. 32.2 g/dL (32.4-36.7); MEAN PLATELET VOLUME 9.9 fL (8.7-11.7); PLATELET CLUMPS FLAG 10 (0-99); PLATELET COUNT 470 10^3/uL (150-400); RED BLOOD CELL COUNT 3.45 10^6/uL (4.18-5.33); RED CELL DISTRIBUTION WIDTH 14.3 % (11.5-15.2)
[2017-01-31 06:03] LABS: ANION GAP 7 mEq/L (8-16); CALCIUM 9.3 mg/dL (8.5-10.4); CARBON DIOXIDE 26 mEq/l (22-31); CHLORIDE 104 mEq/L (97-110); CREATININE 0.7 mg/dL (0.6-1.0); GLOMERULAR FILTRATION RATE > 60; GLUCOSE 98 mg/dL (70-100); POTASSIUM 4.6 mEq/L (3.5-5.2); SODIUM 137 mEq/L (134-144)
[2017-01-31 06:33] LABS: GIANT PLATELETS PRESENT; LARGE PLATELETS PRESENT; PLATELET ESTIMATE ADEQUATE (ADEQ)
[2017-01-31 06:35] LABS: POLYCHROMASIA 1+
--- NOTE | 2017-01-31 08:46 | HOSPPROG ---
Hospitalist Progress Note Assessment/Plan: Juanita Gray is a 41 y/o female who was recently admitted for the below and left to go look for her peronal things. Today is my first encounter seeing Juanita on this admission/ chart reviewed. Her tox screen was negative. *Group A strep bacteremia w Necrotizing cellulitis/ tenosynovitis of both hands and wrists * s/p washout * on PCN * PICC in place *Chronic hepatitis C *Solitary kidney *hx of IVDU/ including methamphetamines and heroine * patient is very motivated not to use *Homelessness * has family in [place] who want her to live with them' * also has family in [place] *anemia * due to acute illness *DVT prophylaxis: ambulation *Plan: cont IV abx, may need further washout,will further discuss w ID. Patient is realizing leaving was a mistake/ says she won't leave again. Subjective: Juanita says her hands are feeling much better. Objective: Vital Signs Temp Pulse Resp BP Pulse Ox 36.6 C 80 16 107/58 L 94 01/30/17 23:33 01/30/17 23:33 01/30/17 23:33 01/30/17 23:33 01/30/17 23:33 Laboratory Results 01/31/17 05:40 01/31/17 05:40 01/30/17 01/31/17 02/01/17 05:59 05:59 05:59 Intake Total 800 Output Total 600 Balance 200 - Physical Exam Constitutional: no apparent distress, appears nourished Eyes: PERRL Ears, Nose, Mouth, Throat: hearing normal Cardiovascular: regular rate and rhythym Respiratory: no respiratory distress Gastrointestinal: normoactive bowel sounds Skin: other (left ring finger with erythema, much less swelling, able to move fingers on left hand. Right hand, fingers, able to bend at the joints easily.) Neurologic: AAOx3 Psychiatric: interacting appropriately, not anxious ICD10 Worksheet Patient Problems: Problems Problem Status Onset MRSA (methicillin resistant Staphylococcus aureus) Acute Homeless Acute IV drug user Acute Septic shock Acute
[2017-01-31] MEDS ORDERED: LACTULOSE 20 GM/30 ML UDCUP PO PRN (11:23)
[2017-01-31] MEDS ORDERED: POLYETHYLENE GLYCOL 3350 17 GM PKT PO PRN (11:23)
[2017-01-31] MEDS ORDERED: BISACODYL 10 MG SUPP PR PRN (11:23)
[2017-01-31] MEDS ORDERED: MAGNESIUM HYDROXIDE 30 ML UDCUP PO PRN (11:23)
[2017-01-31] MEDS: SENNOSIDES/DOCUSATE SODIUM TAB PO SCH ×2 (13:06→21:34)
[2017-01-31] MEDS: GABAPENTIN 300 MG CAP PO SCH ×3 (13:06→21:34)
--- NOTE | 2017-01-31 18:08 | PCMIDPN ---
Assessment/Plan: Assessment/Plan: * Group a streptococcal sepsis and bilateral necrotizing hand cellulitis/ purulent tenosynovitis on the left status post debridement: Marked improvement clinically. Left hand with some residual edema and erythema at base of 3rd and 4th digits; no palpable fluctuance. Suspect will slowly resolve as other findings are greatly improved. Continue penicillin with anticipated duration of therapy to be at least 2 weeks post negative blood cultures. 01/31/17 18:05 Subjective: Patient complains of swelling and numbness at base of 3rd and 4th digits of left hand. Otherwise feels markedly improved. Return to the hospital yesterday after brief elopement. Objective: Vital Signs Temp Pulse Resp BP Pulse Ox 36.8 C 78 16 119/66 95 01/31/17 15:30 01/31/17 15:30 01/31/17 15:30 01/31/17 15:30 01/31/17 15:30 Laboratory Results 01/31/17 05:40 01/31/17 05:40 01/30/17 01/31/17 02/01/17 05:59 05:59 05:59 Intake Total 800 Output Total 600 1100 Balance 200 -1100 Penicillin # 7 Antibiotics # 9 - Physical Exam General Appearance: alert, no apparent distress EENT: No thrush, No conjunctival petechiae Extremities: inflammation (Right hand with resolution of erythema and marked decrease in edema with returned range of motion; left hand with some residual erythema at base of 3rd and 4th digit with mild edema and tenderness; no expressible purulence or palpable fluctuance; blisters over digits resolved; erythema over lateral forearm almost resolved with some peeling of skin) Abdomen: non-tender, No distended - Line/s RUE PICC Lines: No drainage, No erythema ICD10 Worksheet Patient Problems: Problems Problem Status Onset MRSA (methicillin resistant Staphylococcus aureus) Acute Homeless Acute IV drug user Acute Septic shock Acute
[2017-02-01] MEDS: PENICILLIN G POTASSIUM 4,000,000 UNIT in D5W 100 ML IV SCH ×6 (03:24→22:59)
[2017-02-01] MEDS: oxyCODONE IR 5 MG TAB PO PRN ×5 (06:21→22:59)
[2017-02-01] MEDS: GABAPENTIN 300 MG CAP PO SCH ×3 (09:10→23:00)
[2017-02-01] MEDS: SENNOSIDES/DOCUSATE SODIUM TAB PO SCH ×2 (09:10→20:29)
--- NOTE | 2017-02-01 11:45 | PCMIDPN ---
Assessment/Plan: Assessment/Plan: 1. Group A strep sepsis with cellulitis and purulent tenosynovitis bilateral hands: -positive blood cx from 01/21/17. f/u blood cx 01/23/17 ngtd -s/p wash out, most recently on 01/27/17. -currently on PCN IV -close clinical monitoring to ensure no further washouts needed. Meds PCN 4MU q 4 Subjective: Afebrile. left hand with generally more pain and limited ROM than right. both hands with swelling. denies sob, abd pain or diarrhea. Objective: Vital Signs Temp Pulse Resp BP Pulse Ox 36.9 C 69 14 101/60 94 02/01/17 08:20 02/01/17 08:20 02/01/17 08:20 02/01/17 08:20 02/01/17 08:20 Laboratory Results 01/31/17 05:40 01/31/17 05:40 01/31/17 02/01/17 02/02/17 05:59 05:59 05:59 Intake Total 800 650 Output Total 600 1100 Balance 200 -1100 650 - Physical Exam General Appearance: alert, no apparent distress Respiratory: lungs clear Cardiac/Chest: regular rate, rhythm Extremities: swelling Abdomen: normal bowel sounds, non-tender, soft, No distended Skin: erythema (left hand. sutures noted. mild drainage present. tender to touch.warmth appreciated. right hand wihtout much erythema as such. swelling present especially over wrist. Lmited ROM left greater than right. ) ICD10 Worksheet Patient Problems: Problems Problem Status Onset MRSA (methicillin resistant Staphylococcus aureus) Acute Homeless Acute IV drug user Acute Septic shock Acute
--- NOTE | 2017-02-01 12:46 | SOAPPROG ---
SOAP Progress Note Assessment/Plan: Assessment: Plan: 02/01/17 12:45 S/P repeat I&D lt hand sig clinical improvement cont IVabx per ID wound care Subjective: feeling much better Objective: wounds examined with Juanita from wound care overall left with sig improvement in swelling and redness moving fingers well still with some numbness long and ring fingers Vital Signs Temp Pulse Resp BP Pulse Ox 36.9 C 69 14 101/60 94 02/01/17 08:20 02/01/17 08:20 02/01/17 08:20 02/01/17 08:20 02/01/17 08:20 Laboratory Results 01/31/17 05:40 01/31/17 05:40 01/31/17 02/01/17 02/02/17 05:59 05:59 05:59 Intake Total 800 650 Output Total 600 1100 Balance 200 -1100 650 ICD10 Worksheet Patient Problems: Problems Problem Status Onset MRSA (methicillin resistant Staphylococcus aureus) Acute Homeless Acute IV drug user Acute Septic shock Acute
--- NOTE | 2017-02-01 13:32 | WOCRNPDOC ---
GINNYCRFelipe Advanced Assessment Note - Skin Integrity Problem, Advanced Assess Right Anterior Medial Hand Surgical Wound/Incision Dressing Type: Kerlix, Xeroform Dressing Description: Clean/Dry, Intact Closure Description: Sutures, Approximated Exudate Amount: None Exudate Characteristic(s): None Integumentary Issue Intervention: Dressing Applied Divya Wound Tissue: Erythema, Swollen, Dry Divya Wound Swelling: Mild Wound Edges: Epithelizing Site Odor: None Site Measurement - Head-to-Toe Length X Width X Depth (cm): 9cmx0.1cmx0.1cm Skin Integrity Problem Comment: Well-approximated, incisional wound w/ intact sutures noted. No exudate, and patient denies pain. Mild swelling immediately divya-wound, w/ trace erythema along incision per normal healing process. Applied contact layer and foam dressing for protection, and secured w/ Kerlix. wastewater supervisor Becky present. Left Anterior Medial Hand Surgical Wound/Incision Dressing Type: Kerlix, Xeroform Dressing Description: Clean/Dry, Intact Closure Description: Sutures, Approximated Exudate Amount: Scant Exudate Color: Reddish/Yellow Exudate Characteristic(s): Purulent (scant amount at distal aspect, dried.), Serosanguinous Integumentary Issue Intervention: Dressing Applied Divya Wound Tissue: Erythema, Swollen, Dry Divya Wound Swelling: Mild Wound Bed Color: Red Wound Bed Constitution: Granulation Tissue, Smooth Tissue Wound Edges: Epithelizing Site Odor: None Site Measurement - Head-to-Toe Length X Width X Depth (cm): 10.5cmx0.2cmx0.1cm Skin Integrity Problem Comment: Assessed patient w/ Dr. Woodall. Well- approximated surgical incision noted, w/ scant serosanguinous exudate. There is mild to moderate swelling divya-wound, w/ dry,desquamated, peeling skin noted throughout forearm r/t previous swelling. Patient denies pain to site. This incision does have a small area of dried purulence noted in the incision along the most distal aspect, though no gina purulence could be expressed. As a precaution, I applied a silver incisional dressing to protect the site and confer some anti-microbial protection. wastewater supervisor Becky present to observe dressing application. Wound care will round again on 02/04.
--- NOTE | 2017-02-01 13:33 | HOSPPROG ---
Hospitalist Progress Note Assessment/Plan: Juanita Gray is a 41 y/o female who was recently admitted for the below and left to go look for her personal things. *Group A strep bacteremia w Necrotizing cellulitis/ tenosynovitis of both hands and wrists * s/p washout * on PCN * PICC in place * much improved *pain due to the above * scheduled gabapentin, Tylenol and prn oxy * told Juanita I would not increase her pain medications / she is ok with this * having some neck pain/ Bengay ordered per her request *Chronic hepatitis C *Solitary kidney avoid nephrotoxic medications *hx of IVDU/ including methamphetamines and heroine * patient is very motivated not to use *Homelessness * has family in [place] who want her to live with them' * also has family in [place] * she was given stamps and is trying to contact them for a place to live *anemia * due to acute illness *DVT prophylaxis: ambulation *Plan: cont current treatment Subjective: Juanita Zhang is c/o right hand pain. Objective: Vital Signs Temp Pulse Resp BP Pulse Ox 36.9 C 69 14 101/60 94 02/01/17 08:20 02/01/17 08:20 02/01/17 08:20 02/01/17 08:20 02/01/17 08:20 Laboratory Results 01/31/17 05:40 01/31/17 05:40 01/31/17 02/01/17 02/02/17 05:59 05:59 05:59 Intake Total 800 650 Output Total 600 1100 Balance 200 -1100 650 - Physical Exam Constitutional: no apparent distress, appears nourished, uncomfortable Eyes: PERRL Ears, Nose, Mouth, Throat: moist mucous membranes Cardiovascular: regular rate and rhythym Respiratory: no respiratory distress, no rales or rhonchi Gastrointestinal: normoactive bowel sounds Skin: other (hands with much less swelling/ left finger still reddened/ mainly ring finger, skin peeling) Musculoskeletal: full muscle strength, other (moving her fingers much better) Neurologic: AAOx3 Psychiatric: interacting appropriately, not anxious ICD10 Worksheet Patient Problems: Problems Problem Status Onset MRSA (methicillin resistant Staphylococcus aureus) Acute Homeless Acute IV drug user Acute Septic shock Acute
[2017-02-01] MEDS: ACETAMINOPHEN 500 MG TAB PO SCH ×2 (16:16→23:00)
[2017-02-01] MEDS: METHYL SALICYLATE/MENTHOL OINTMENT TP PRN (23:51)
[2017-02-02] MEDS: PENICILLIN G POTASSIUM 4,000,000 UNIT in D5W 100 ML IV SCH ×6 (02:05→22:48)
[2017-02-02] MEDS: ACETAMINOPHEN 500 MG TAB PO SCH ×3 (09:23→22:50)
[2017-02-02] MEDS: SENNOSIDES/DOCUSATE SODIUM TAB PO SCH ×2 (09:24→22:51)
[2017-02-02] MEDS: GABAPENTIN 300 MG CAP PO SCH ×3 (09:24→22:50)
[2017-02-02] MEDS: oxyCODONE IR 5 MG TAB PO PRN ×4 (09:32→22:49)
--- NOTE | 2017-02-02 13:57 | HOSPPROG ---
Hospitalist Progress Note Assessment/Plan: Juanita Gray is a 41 y/o female who was recently admitted for the below and left to go look for her personal things. This is my first encounter with this pt. Chart reviewed. D/W RN. *Group A strep bacteremia w Necrotizing cellulitis/ tenosynovitis of both hands and wrists * s/p washout * on PCN * PICC in place * much improved * abx length per ID *pain due to the above * scheduled gabapentin, Tylenol and prn oxy * will not increase her pain medications / she is ok with this * having some neck pain/ Bengay ordered per her request *Chronic hepatitis C *Solitary kidney avoid nephrotoxic medications *hx of IVDU/ including methamphetamines and heroine * patient is very motivated not to use *Homelessness * has family in [place] who want her to live with them' * also has family in [place] * she was given stamps and is trying to contact them for a place to live *anemia * due to acute illness *DVT prophylaxis: ambulation *Plan: cont current treatment Cont IV abx per ID Subjective: Feeling ok. Slept all night. Pain better. Objective: Vital Signs Temp Pulse Resp BP Pulse Ox 36.9 C 82 14 112/70 96 02/02/17 08:41 02/02/17 08:41 02/02/17 08:41 02/02/17 08:41 02/02/17 08:41 Laboratory Results 01/31/17 05:40 01/31/17 05:40 02/01/17 02/02/17 02/03/17 05:59 05:59 05:59 Intake Total 1050 386 Output Total 1100 1000 Balance -1100 1050 -614 - Physical Exam Constitutional: appears nourished, chronically ill appearing, unkempt Eyes: PERRL, anicteric sclera, EOMI Ears, Nose, Mouth, Throat: moist mucous membranes, hearing normal, ears appear normal Cardiovascular: regular rate and rhythym, No JVD, No edema Respiratory: no respiratory distress, no rales or rhonchi, reduced air movement Gastrointestinal: No tenderness, No ascites, No guarding Skin: warm, normal color, No erythema Musculoskeletal: no joint effusions, pain with ROM, muscular tenderness Neurologic: AAOx3 Psychiatric: not anxious, not encephalopathic, poor insight ICD10 Worksheet Patient Problems: Problems Problem Status Onset IV drug user Acute Homeless Acute Septic shock Acute MRSA (methicillin resistant Staphylococcus aureus) Acute
--- NOTE | 2017-02-02 16:01 | PCMIDPN ---
Assessment/Plan: Assessment: Group a streptococcal sepsis with involvement of necrotic cellulitis in both hands. Patient is now 10 days treatment status post clearance. She is slated to go 14 days. In general her hand wounds are improving. Right hand is without residual evidence of infection. Left hand has residual erythema and mild amount of necrotic changes on the dorsal aspect of the hand. Plan to continue IV penicillin and keep her admitted in the hospital until completion. Plan: 1. Continue IV penicillin at present dose. 2. Follow her clinical improvement. 02/02/17 18:32 Subjective: Patient is resting in her hospital room. She denies any complaint. She is very appreciative of her care. States that the right hand has nearly full use and range of motion. Left hand is somewhat impeded by swelling. No fevers or chills. No rash. No diarrhea. Objective: IV pen G # 9 (# 11) Vital Signs Temp Pulse Resp BP Pulse Ox 36.9 C 82 14 112/70 96 02/02/17 08:41 02/02/17 08:41 02/02/17 08:41 02/02/17 08:41 02/02/17 08:41 Laboratory Results 01/31/17 05:40 01/31/17 05:40 02/01/17 02/02/17 02/03/17 05:59 05:59 05:59 Intake Total 1050 514 Output Total 1100 1000 Balance -1100 1050 -486 - Physical Exam General Appearance: WD/WN, alert, no apparent distress, non-toxic Respiratory: lungs clear, normal breath sounds, No respiratory distress Cardiac/Chest: regular rate, rhythm, No tachycardia Extremities: non-tender, No normal inspection (Right hand with dorsal incision that is clean dry and intact. Left hand with mild amount of dusky erythema over the 2nd 3rd and 4th MCP joints.) Skin: normal color, warm/dry, No rash Neuro/Psych: alert, normal mood/affect, oriented x 3 ICD10 Worksheet Patient Problems: Problems Problem Status Onset MRSA (methicillin resistant Staphylococcus aureus) Acute Homeless Acute IV drug user Acute Septic shock Acute
[2017-02-02] MEDS ORDERED: PSEUDOEPHEDRINE HCL 30 MG TAB PO ONE (17:30)
[2017-02-03] MEDS: PENICILLIN G POTASSIUM 4,000,000 UNIT in D5W 100 ML IV SCH ×6 (02:00→22:08)
[2017-02-03] MEDS: oxyCODONE IR 5 MG TAB PO PRN ×4 (05:23→19:04)
[2017-02-03] MEDS: SENNOSIDES/DOCUSATE SODIUM TAB PO SCH ×2 (09:11→22:07)
[2017-02-03] MEDS: GABAPENTIN 300 MG CAP PO SCH ×3 (09:11→22:07)
--- NOTE | 2017-02-03 09:59 | PCMIDPN ---
Assessment/Plan: 1. Group a strep bacteremia with necrotizing cellulitis/tenosynovitis of bilateral hands and wrists status post washout: Much better overall. Continue penicillin as is. No new recommendations. Continue wound care. She will likely go home on Tuesday. I have asked social work to please try and get her an appointment at [facility] before she leaves. 2. Chronic hepatitis-C: Very low level viremia. Patient states that her viral loads have always been undetectable, and that the doctors "have not been able to find it" since she was diagnosed 27 years ago. Will repeat hepatitis C viral load given unusually low viremia. She is not immune to hep a or B. We will give Twinrix 1. Today; she will need 2. Mid February, and 3. July 2017. 4. Solitary kidney: Creatinine stable 5. Vaccinations: As outlined above, needs to start Twinrix series--will likely start this today. Received a Tdap while in-house. Subjective: Patient in good spirits. She will likely go home on Tuesday. Fingers left hand the increasing range of motion each day. Objective: Penicillin 4 million units IV q.4 hours day 10. (antibiotics day 12) Afebrile Vital Signs Temp Pulse Resp BP Pulse Ox 36.8 C 64 18 95/52 L 98 02/03/17 07:46 02/03/17 07:46 02/03/17 07:46 02/03/17 07:46 02/03/17 07:46 Laboratory Results 01/31/17 05:40 01/31/17 05:40 02/02/17 02/03/17 02/04/17 05:59 05:59 05:59 Intake Total 1050 642 Output Total 1000 Balance 1050 -358 No new microbiology - Physical Exam General Appearance: alert, no apparent distress EENT: pharynx normal Extremities: other (Left hand dressing not taken down (it will be taken down tomorrow and I will be here to see that) markedly improved range of motion of fingers and wrist. Denuded epidermal skin layer dorsum of fingers looks good without evidence of infection. Right hand dressed; I did not take down.) ICD10 Worksheet Patient Problems: Problems Problem Status Onset MRSA (methicillin resistant Staphylococcus aureus) Acute Homeless Acute IV drug user Acute Septic shock Acute
[2017-02-03] MEDS: HYDROCODONE/APAP 5/325 TAB PO PRN ×3 (10:30→23:34)
[2017-02-03] MEDS ORDERED: HEPATITIS B VIRUS VACCINE-PF 20 MCG/ML VIAL IM ONE (10:30)
[2017-02-03] MEDS ORDERED: HEPATITIS A VIRUS VACCINE 1,440 UNIT/ML SYRINGE IM ONE (10:30)
[2017-02-03] MEDS: ACETAMINOPHEN 500 MG TAB PO SCH ×3 (10:40→22:09)
[2017-02-03] MEDS ORDERED: PSEUDOEPHEDRINE HCL 30 MG TAB PO PRN (10:59)
--- NOTE | 2017-02-03 14:49 | HOSPPROG ---
Hospitalist Progress Note Assessment/Plan: Juanita Gray is a 41 y/o female who was recently admitted for the below and left to go look for her personal things. D/W Dr Mendoza. *Group A strep bacteremia w Necrotizing cellulitis/ tenosynovitis of both hands and wrists * s/p washout * on PCN * PICC in place * much improved * abx length per ID 4-5 more days *pain due to the above * scheduled gabapentin, Tylenol and prn oxy * will add norco today * having some neck pain/ Bengay ordered per her request *Chronic hepatitis C not immune to hep a or B. We will give Twinrix 1. Today; she will need 2. February, and 3. July 2017. *Solitary kidney avoid nephrotoxic medications *hx of IVDU/ including methamphetamines and heroine * patient is very motivated not to use *Homelessness * has family in [place] who want her to live with them' * also has family in [place] * she was given stamps and is trying to contact them for a place to live *anemia * due to acute illness *DVT prophylaxis: ambulation *Plan: cont current treatment Cont IV abx per ID Subjective: Still having significant pain in right wrist. No other issues. Objective: Vital Signs Temp Pulse Resp BP Pulse Ox 36.8 C 64 18 95/52 L 98 02/03/17 07:46 02/03/17 07:46 02/03/17 07:46 02/03/17 07:46 02/03/17 07:46 Laboratory Results 01/31/17 05:40 01/31/17 05:40 02/02/17 02/03/17 02/04/17 05:59 05:59 05:59 Intake Total 1050 642 Output Total 1000 Balance 1050 -129 - Physical Exam Constitutional: chronically ill appearing, uncomfortable, unkempt Eyes: PERRL, anicteric sclera, EOMI Ears, Nose, Mouth, Throat: moist mucous membranes, hearing normal, ears appear normal Cardiovascular: No JVD, No tachycardia, No edema Respiratory: no respiratory distress, no rales or rhonchi, reduced air movement Gastrointestinal: No tenderness, No ascites, No guarding Skin: warm, no rashes or abrasions, erythema Musculoskeletal: pain with ROM, muscular tenderness, generalized weakness Neurologic: AAOx3 Psychiatric: not anxious, not encephalopathic, thought process linear, poor judgement ICD10 Worksheet Patient Problems: Problems Problem Status Onset MRSA (methicillin resistant Staphylococcus aureus) Acute Homeless Acute IV drug user Acute Septic shock Acute
[2017-02-04] MEDS: PENICILLIN G POTASSIUM 4,000,000 UNIT in D5W 100 ML IV SCH ×6 (02:06→23:05)
[2017-02-04] MEDS: oxyCODONE IR 5 MG TAB PO PRN ×4 (02:06→23:04)
[2017-02-04] MEDS: HYDROCODONE/APAP 5/325 TAB PO PRN ×3 (06:08→19:34)
[2017-02-04] MEDS: GABAPENTIN 300 MG CAP PO SCH ×3 (08:40→23:05)
[2017-02-04] MEDS: SENNOSIDES/DOCUSATE SODIUM TAB PO SCH ×2 (08:40→23:04)
--- NOTE | 2017-02-04 10:32 | PCMIDPN ---
Assessment/Plan: 1. Group a strep bacteremia with necrotizing cellulitis/tenosynovitis of bilateral hands and wrists status post washout: Much better overall. Continue penicillin as is. No new recommendations. Continue wound care. She will likely go home on Tuesday. I have asked social work to please try and get her an appointment at [facility] before she leaves, as well as wound care. 2. Chronic hepatitis-C: Very low level viremia. Patient states that her viral loads have always been undetectable, and that the doctors "have not been able to find it" since she was diagnosed 27 years ago. Repeat hepatitis C viral load pending. She is not immune to hep a or B. hepatitis a 1. And hepatitis-B 1. Given yesterday. she will need hepatitis B 2. In 1 month, and hepatitis a 2. And hepatitis-B 3. July 2017. 4. Solitary kidney: Creatinine stable. 02/04/17 10:30 Subjective: In good spirits. No complaints. hands are unwrap so I can see them. Objective: Penicillin 4 million units IV q.4 hours day 11. (Antibiotics day 13) Afebrile Vital Signs Temp Pulse Resp BP Pulse Ox 36.8 C 70 18 98/58 L 96 02/04/17 08:05 02/04/17 08:05 02/04/17 08:05 02/04/17 08:05 02/04/17 08:05 Laboratory Results 01/31/17 05:40 01/31/17 05:40 02/03/17 02/04/17 02/05/17 05:59 05:59 05:59 Intake Total 642 Output Total 1000 Balance -358 Hepatitis C quantitative RNA pending - Physical Exam General Appearance: alert, no apparent distress Extremities: other (Dorsum left hand looks markedly better. Erythema practically gone. Minimal serous drainage from the incision. Sutures in place. She is able to flex and extend her fingers and wrist without difficulty. Dorsum of right hand looks completely normal now.) ICD10 Worksheet Patient Problems: Problems Problem Status Onset MRSA (methicillin resistant Staphylococcus aureus) Acute Homeless Acute IV drug user Acute Septic shock Acute
[2017-02-04] MEDS: ACETAMINOPHEN 500 MG TAB PO SCH ×3 (10:49→23:34)
--- NOTE | 2017-02-04 11:01 | WOCRNPDOC ---
WOCRN Advanced Assessment Note - Skin Integrity Problem, Advanced Assess Right Anterior Medial Hand Surgical Wound/Incision Skin Integrity Problem Comment: Site dressed by nursing this morning. Did not assess. Per report from both ID and nursing, incision continues to heal w/ no apparent complications. Left Anterior Medial Hand Surgical Wound/Incision Dressing Type: Mepilex Border Ag+ (inicisional dressing) Closure Description: Sutures, Approximated Exudate Amount: Scant Exudate Color: Reddish/Yellow Exudate Characteristic(s): Serosanguinous Integumentary Issue Intervention: Dressing Changed Divya Wound Tissue: Intact Divya Wound Swelling: Mild (discrete, immediately adjacent to incision) Wound Bed Color: Red Wound Edges: Epithelizing Site Odor: None Skin Integrity Problem Comment: Swelling and erythema decreased since previous assessment on 02/01, w/ no purulence or necrosis noted. Continuing orders include dc'ing silver incisional dressing and continuing w/ simple foam dressing and Kerlix for protection of incision. Patient reports mild discomfort w/ range of motion at wrist, but otherwise denies pain.
--- NOTE | 2017-02-04 12:03 | HOSPPROG ---
Hospitalist Progress Note Assessment/Plan: Juanita Gray is a 41 y/o female who was recently admitted for the below and left to go look for her personal things. D/W Dr Mendoza. *Group A strep bacteremia w Necrotizing cellulitis/ tenosynovitis of both hands and wrists * s/p washout * on PCN * PICC in place * much improved * abx length Tuesday *pain due to the above * scheduled gabapentin, Tylenol and prn oxy * will add norco today * having some neck pain/ Bengay ordered per her request *Chronic hepatitis C not immune to hep a or B. We will give Twinrix 1. Today; she will need 2. February, and 3. July 2017. *Solitary kidney avoid nephrotoxic medications *hx of IVDU/ including methamphetamines and heroine * patient is very motivated not to use *Homelessness * has family in [place] who want her to live with them' * also has family in [place] * she was given stamps and is trying to contact them for a place to live *anemia * due to acute illness *DVT prophylaxis: ambulation *Plan: cont current treatment Cont IV abx per ID Subjective: Feeling well today. Less pain. No other issues. Objective: Vital Signs Temp Pulse Resp BP Pulse Ox 36.8 C 70 18 98/58 L 96 02/04/17 08:05 02/04/17 08:05 02/04/17 08:05 02/04/17 08:05 02/04/17 08:05 Laboratory Results 01/31/17 05:40 01/31/17 05:40 02/03/17 02/04/17 02/05/17 05:59 05:59 05:59 Intake Total 642 Output Total 1000 Balance -358 - Physical Exam Constitutional: no apparent distress, not in pain Eyes: PERRL, anicteric sclera Ears, Nose, Mouth, Throat: moist mucous membranes, hearing normal Cardiovascular: No JVD, No edema Respiratory: no respiratory distress, clear to auscultation Gastrointestinal: No tenderness, No ascites Skin: warm, no rashes or abrasions Musculoskeletal: no joint effusions, pain with ROM Neurologic: AAOx3 Psychiatric: interacting appropriately, not anxious ICD10 Worksheet Patient Problems: Problems Problem Status Onset IV drug user Acute Homeless Acute Septic shock Acute MRSA (methicillin resistant Staphylococcus aureus) Acute
[2017-02-05] MEDS: HYDROCODONE/APAP 5/325 TAB PO PRN ×3 (01:59→18:08)
[2017-02-05] MEDS: PENICILLIN G POTASSIUM 4,000,000 UNIT in D5W 100 ML IV SCH ×6 (01:59→21:57)
[2017-02-05] MEDS: oxyCODONE IR 5 MG TAB PO PRN ×3 (05:56→21:57)
[2017-02-05] MEDS: ACETAMINOPHEN 500 MG TAB PO SCH ×3 (09:18→22:58)
[2017-02-05] MEDS: SENNOSIDES/DOCUSATE SODIUM TAB PO SCH ×2 (09:25→21:57)
[2017-02-05] MEDS: GABAPENTIN 300 MG CAP PO SCH ×3 (09:25→21:57)
--- NOTE | 2017-02-05 14:26 | HOSPPROG ---
Hospitalist Progress Note Assessment/Plan: Juanita Gray is a 41 y/o female who was recently admitted for the below and left to go look for her personal things. D/W Dr Reyes. *Group A strep bacteremia w Necrotizing cellulitis/ tenosynovitis of both hands and wrists * s/p washout * on PCN * PICC in place * much improved * abx length Tuesday *pain due to the above * scheduled gabapentin, Tylenol and prn oxy * will add norco today * having some neck pain/ Bengay ordered per her request *Chronic hepatitis C not immune to hep a or B. We will give Twinrix 1. Today; she will need 2. February, and 3. July 2017. *Solitary kidney avoid nephrotoxic medications *hx of IVDU/ including methamphetamines and heroine * patient is very motivated not to use *Homelessness * has family in [place] who want her to live with them' * also has family in [place] * she was given stamps and is trying to contact them for a place to live *anemia * due to acute illness *DVT prophylaxis: ambulation *Plan: cont current treatment Cont IV abx per ID Subjective: Feeling well today. Hands feel better. Better range of motion. Objective: Vital Signs Temp Pulse Resp BP Pulse Ox 37.1 C 86 16 121/61 H 94 02/05/17 07:07 02/05/17 07:07 02/05/17 07:07 02/05/17 07:07 02/05/17 07:07 Laboratory Results 01/31/17 05:40 01/31/17 05:40 - Physical Exam Constitutional: appears nourished, chronically ill appearing Eyes: PERRL, anicteric sclera Ears, Nose, Mouth, Throat: moist mucous membranes, hearing normal Cardiovascular: No JVD, No edema Respiratory: no respiratory distress Gastrointestinal: No tenderness, No ascites Skin: warm, normal color, erythema Musculoskeletal: pain with ROM, muscular tenderness Neurologic: AAOx3 Psychiatric: not anxious, not encephalopathic, thought process linear ICD10 Worksheet Patient Problems: Problems Problem Status Onset IV drug user Acute Homeless Acute Septic shock Acute MRSA (methicillin resistant Staphylococcus aureus) Acute
--- NOTE | 2017-02-05 18:07 | PCMIDPN ---
Assessment/Plan: Assessment: Group a streptococcal sepsis with involvement of necrotic cellulitis in both hands. Right hand is without residual evidence of infection. Left hand has residual erythema and mild amount of necrotic changes on the dorsal aspect of the hand. Plan to continue IV penicillin and keep her admitted in the hospital until these changes resolve. Plan: 1. Continue IV penicillin at present dose. 2. Follow her clinical improvement. 02/05/17 18:05 Subjective: Patient is in good spirits. She voices no complaint. She states that she is continually gaining motion in both hands. No fevers or chills. Tolerating penicillin without issue. Objective: Penicillin G # 12 Vital Signs Temp Pulse Resp BP Pulse Ox 36.6 C 83 18 127/65 H 95 02/05/17 15:07 02/05/17 15:07 02/05/17 15:07 02/05/17 15:07 02/05/17 15:07 Laboratory Results 01/31/17 05:40 01/31/17 05:40 - Physical Exam General Appearance: WD/WN, alert, no apparent distress, non-toxic Respiratory: lungs clear, normal breath sounds, No respiratory distress Cardiac/Chest: regular rate, rhythm, No tachycardia Extremities: non-tender, erythema (Mild left hand), No normal inspection, No inflammation Skin: normal color, warm/dry, No rash Neuro/Psych: alert, normal mood/affect, oriented x 3 ICD10 Worksheet Patient Problems: Problems Problem Status Onset MRSA (methicillin resistant Staphylococcus aureus) Acute Homeless Acute IV drug user Acute Septic shock Acute
[2017-02-05] MEDS: METHYL SALICYLATE/MENTHOL OINTMENT TP PRN (21:56)
[2017-02-06] MEDS: PENICILLIN G POTASSIUM 4,000,000 UNIT in D5W 100 ML IV SCH ×6 (02:48→21:44)
[2017-02-06] MEDS: HYDROCODONE/APAP 5/325 TAB PO PRN ×3 (02:49→18:22)
[2017-02-06] MEDS: oxyCODONE IR 5 MG TAB PO PRN ×3 (05:39→21:53)
--- NOTE | 2017-02-06 08:10 | HOSPPROG ---
Hospitalist Progress Note Assessment/Plan: 41 y/o female with IVDU, newly dx Hep C, solitary kidney, homelessness, who was admitted 01/21 with bilateral septic arthritis, cellulitis, tenosynovitis. She left hospital on AMA of 01/30 to look for her belongings and then returned to hospital to be readmitted. D/W Dr Reyes. *Group A strep bacteremia w Necrotizing cellulitis/ tenosynovitis of both hands and wrists * s/p washout 01/[address] Ma * on PCN * PICC in place * much improved but pt still concerned that L hand continues to have erythema and restriction flexion * abx length Tuesday *pain due to the above * scheduled gabapentin, Tylenol and prn oxy * will add norco today * having some neck pain/ Bengay ordered per her request *Chronic hepatitis C not immune to hep a or B. We will give Twinrix 1. Today; she will need 2. February, and 3. July 2017. *Solitary kidney avoid nephrotoxic medications *hx of IVDU/ including methamphetamines and heroin * patient is very motivated not to use *Homelessness * has family in [place] who want her to live with them' * also has family in [place] * she was given stamps and is trying to contact them for a place to live * she reports that she has place to live in [place] and plans to stay off the streets *anemia * due to acute illness *DVT prophylaxis: ambulation *Plan: cont current treatment Cont IV abx per ID Subjective: Reports L hand pain and restricted movement of fingers. No dyspnea. Objective: Vital Signs Temp Pulse Resp BP Pulse Ox 98.2 F 61 16 95/51 L 95 02/06/17 07:32 02/06/17 07:32 02/06/17 07:32 02/06/17 07:32 02/06/17 07:32 Laboratory Results 01/31/17 05:40 01/31/17 05:40 - Physical Exam Constitutional: no apparent distress, appears nourished Eyes: PERRL Ears, Nose, Mouth, Throat: moist mucous membranes Cardiovascular: regular rate and rhythym, no murmur, rub, or gallop Respiratory: no respiratory distress, no rales or rhonchi Skin: other (L hand incision with miniminal erythema/cellulitic into fingers) Psychiatric: interacting appropriately ICD10 Worksheet Patient Problems: Problems Problem Status Onset MRSA (methicillin resistant Staphylococcus aureus) Acute Homeless Acute IV drug user Acute Septic shock Acute
[2017-02-06] MEDS: ACETAMINOPHEN 500 MG TAB PO SCH ×3 (10:15→21:43)
[2017-02-06] MEDS: SENNOSIDES/DOCUSATE SODIUM TAB PO SCH ×2 (10:15→21:43)
[2017-02-06] MEDS: GABAPENTIN 300 MG CAP PO SCH ×3 (10:16→21:44)
--- NOTE | 2017-02-06 12:28 | PCMIDPN ---
Assessment/Plan: Assessment: Group a streptococcal sepsis with involvement of necrotic cellulitis in both hands. Right hand is without residual evidence of infection. Left hand has residual erythema and mild amount of necrotic changes on the dorsal aspect of the hand. Plan to continue IV penicillin and keep her admitted in the hospital until these changes resolve. Will ask Dr. Ma her surgeon to come by and inspect the left hand tomorrow morning. Plan: 1. Continue IV penicillin at present dose. 2. Follow her clinical improvement. 3. Ask for follow-up surgical opinion. Subjective: Patient is in good spirits and is ambulating around her room. She has a good appetite. Her only concern is continued serosanguineous drainage and dusky erythema over the 2nd and 3rd MCP joints of her left hand. No fevers or chills. Objective: Penicillin G # 13 Vital Signs Temp Pulse Resp BP Pulse Ox 36.8 C 61 16 95/51 L 95 02/06/17 07:32 02/06/17 07:32 02/06/17 07:32 02/06/17 07:32 02/06/17 07:32 Laboratory Results 01/31/17 05:40 01/31/17 05:40 - Physical Exam General Appearance: WD/WN, alert, thin, non-toxic Respiratory: lungs clear, normal breath sounds, No respiratory distress Cardiac/Chest: regular rate, rhythm, No tachycardia Extremities: non-tender, inflammation (Mild distal incision left hand), No normal inspection (Left hand dorsal incision with dusky erythema at the distal aspect with serous to serosanguineous drainage.) Skin: normal color, warm/dry, No rash Neuro/Psych: alert, normal mood/affect, oriented x 3 ICD10 Worksheet Patient Problems: Problems Problem Status Onset MRSA (methicillin resistant Staphylococcus aureus) Acute Homeless Acute IV drug user Acute Septic shock Acute
[2017-02-07] MEDS: PENICILLIN G POTASSIUM 4,000,000 UNIT in D5W 100 ML IV SCH ×4 (02:42→13:58)
[2017-02-07] MEDS: HYDROCODONE/APAP 5/325 TAB PO PRN (02:49)
[2017-02-07] MEDS: oxyCODONE IR 5 MG TAB PO PRN ×2 (06:24→10:24)
[2017-02-07 07:31] VITALS: BP 105/52; PULSE 75; RESP 16; TEMP 98.4; O2SAT 95
--- NOTE | 2017-02-07 08:02 | HOSPPROG ---
Hospitalist Progress Note Assessment/Plan: 41 y/o female with IVDU, newly dx Hep C, solitary kidney, homelessness, who was admitted 01/21 with bilateral septic arthritis, cellulitis, tenosynovitis. She left hospital on AMA of 01/30 to look for her belongings and then returned to hospital to be readmitted. *Group A strep bacteremia w Necrotizing cellulitis/ tenosynovitis of both hands and wrists * s/p washout 01/[address] Ma * on PCN * PICC in place * ok with Dr Reyes for dc, will await for Dr Ma's input *pain due to the above * scheduled gabapentin, Tylenol and prn oxy * will add norco today * having some neck pain/ Bengay ordered per her request *Chronic hepatitis C not immune to hep a or B. Was given Twinrix 1 on February 06, she will need 2. Mid February, and 3. July 2017. *Solitary kidney avoid nephrotoxic medications *hx of IVDU/ including methamphetamines and heroin * patient is very motivated not to use *Homelessness * has family in [place] who want her to live with them' * also has family in [place] * she was given stamps and is trying to contact them for a place to live * she reports that she has place to live in [place] and plans to stay off the streets *anemia * due to acute illness *DVT prophylaxis: ambulation *Plan: dc later if ok with Dr Ma Subjective: Juanita is feeling well/ no complaints. Objective: Vital Signs Temp Pulse Resp BP Pulse Ox 36.9 C 75 16 105/52 L 95 02/07/17 07:30 02/07/17 07:30 02/07/17 07:30 02/07/17 07:30 02/07/17 07:30 Laboratory Results 01/31/17 05:40 01/31/17 05:40 02/06/17 02/07/17 02/08/17 05:59 05:59 05:59 Intake Total 400 Balance 400 - Physical Exam Constitutional: no apparent distress, appears nourished, not in pain Eyes: PERRL Ears, Nose, Mouth, Throat: hearing normal Respiratory: no respiratory distress Gastrointestinal: normoactive bowel sounds Skin: warm, other (swelling, redness on both hands much improved. Able to move all of her fingers without difficulty.) Musculoskeletal: full muscle strength Neurologic: AAOx3 Psychiatric: interacting appropriately, not anxious ICD10 Worksheet Patient Problems: Problems Problem Status Onset MRSA (methicillin resistant Staphylococcus aureus) Acute Homeless Acute IV drug user Acute Septic shock Acute
[2017-02-07] MEDS: ACETAMINOPHEN 500 MG TAB PO SCH (08:17)
[2017-02-07] MEDS: GABAPENTIN 300 MG CAP PO SCH (08:17)
[2017-02-07] MEDS: SENNOSIDES/DOCUSATE SODIUM TAB PO SCH (08:17)
--- NOTE | 2017-02-07 12:32 | SOAPPROG ---
SOAP Progress Note Assessment/Plan: Assessment: Plan: 02/01/17 12:45 S/P repeat I&D lt hand sig clinical improvement cont IVabx per ID wound care 02/07/17 12:31 S/p Repeat I&D left hand overall clinically improved no need for further surgical intervention Abx per ID ok to DC Subjective: overall feeling much better Objective: left wound inspected min serous drainage moving fingers much better no fluctuance Vital Signs Temp Pulse Resp BP Pulse Ox 36.9 C 75 16 105/52 L 95 02/07/17 07:30 02/07/17 07:30 02/07/17 07:30 02/07/17 07:30 02/07/17 07:30 Laboratory Results 01/31/17 05:40 01/31/17 05:40 02/06/17 02/07/17 02/08/17 05:59 05:59 05:59 Intake Total 400 Balance 400 ICD10 Worksheet Patient Problems: Problems Problem Status Onset MRSA (methicillin resistant Staphylococcus aureus) Acute Homeless Acute IV drug user Acute Septic shock Acute
--- NOTE | 2017-02-07 13:37 | GDS ---
[f rep st] DISCHARGE SUMMARY DISCHARGE DIAGNOSES: 1. Group A strep bacteremia with necrotizing cellulitis/tenosynovitis of both hands and wrists. 2. Pain due to this. 3. Chronic hepatitis C. 4. Solitary kidney. 5. History of IV drug use. 6. Homelessness. 7. Anemia. CONSULTATIONS DURING HER STAY: 1. Dr. Vika Mendoza, with infectious disease. 2. Dr. Petey Ma. HOSPITAL COURSE: The patient is a 41-year-old female with a history of IV drug abuse who was admitted on 01/21 and treated for bilateral hand septic arthritis , cellulitis, and tenosynovitis. She left the hospital on the morning of January 30 without telling anyone, in an effort to find her belongings. She reappeared to the emergency room and wanted further treatment in regard to her infection. She was admitted for further care. HOSPITAL COURSE PER PROBLEM: 1. Group A strep bacteremia with necrotizing cellulitis/tenosynovitis of both hands and wrists. She is status post washout with Dr. Ma. She was treated with penicillin. She was evaluated by Dr. Reyes and Dr. Ma, who felt she was fine for discharge today. 2. Pain due to the above. Will avoid giving her any narcotics at discharge because of her use of methamphetamines. She has done well with Tylenol and gabapentin. 3. Chronic hepatitis C. 4. Solitary kidney, avoiding any nephrotoxic medications during her stay. 5. History of IV drug use. She has a history of methamphetamine use and heroin use. She is very motivated to quit. 6. Homelessness. She reports that she has a place in the [place] area and plans to stay off the streets. 7. Anemia due to the acute illness. PENDING LABS AND TESTS: None. CONDITION AT DISCHARGE: Stable. Blood pressure is 105/52, heart rate 75, respiratory rate is 16, O2 sats on room air 95%, temperature 36.9 Celsius. MEDICATIONS AT DISCHARGE: Please see the EMR. DISCHARGE INSTRUCTIONS: 1. She needs to get dressing changes that have been written out in detail by the wound care nurse. 2. She has wound care appointment on February 09. 3. She has a [facility] appointment on February 09. 4. Follow up with Dr. Ma. She needs her stitches removed in 1 week. 5. Call [facility]. She needs to follow up with them in 1-2 weeks. 6. She was given Twinrix on February 06. She will need 2 more doses. Greater than 30 minutes discharging and coordinating the patient's care. /[id number]/MODL MTDD
--- NOTE | 2017-02-07 16:23 | PCMIDPN ---
Assessment/Plan: Assessment: Group a streptococcal sepsis with involvement of necrotic cellulitis in both hands. Right hand is without residual evidence of infection. Left hand has residual erythema and mild amount of necrotic changes on the dorsal aspect of the hand. Dr. Ma has seen the patient in cleared her for discharge. Will discontinue antibiotics and have patient follow up for wound care. Plan: 1. Discontinue antibiotics. 2. Follow up in clinic in 7 days time. 02/07/17 16:22 Subjective: Patient is feeling well. She is in good spirits. No fevers or chills. No rash. Objective: IV penicillin G # 14 Vital Signs Temp Pulse Resp BP Pulse Ox 36.9 C 75 16 105/52 L 95 02/07/17 07:30 02/07/17 07:30 02/07/17 07:30 02/07/17 07:30 02/07/17 07:30 Laboratory Results 01/31/17 05:40 01/31/17 05:40 02/06/17 02/07/17 02/08/17 05:59 05:59 05:59 Intake Total 400 Balance 400 - Physical Exam General Appearance: WD/WN, alert, no apparent distress, non-toxic Respiratory: lungs clear, normal breath sounds, No respiratory distress Cardiac/Chest: regular rate, rhythm, No tachycardia Extremities: non-tender, No normal inspection (Dorsum of left hand still with residual dusky erythema over the 3rd MCP) Skin: normal color, warm/dry, No rash Neuro/Psych: alert, normal mood/affect, oriented x 3 ICD10 Worksheet Patient Problems: Problems Problem Status Onset Homeless Acute IV drug user Acute MRSA (methicillin resistant Staphylococcus aureus) Acute Septic shock Acute
== END 2017-02-07 14:20 | disposition home or self-care (01) | DRG 603 ==
LOC: EDUNIT# → F3E 13:26
PROVIDERS: ADMIT Hospitalist; ATTEND Family Medicine
DX: L03.114 Cellulitis of left upper limb (principal); Q60.0 Renal agenesis, unilateral; L03.113 Cellulitis of right upper limb; B95.0 Streptococcus, group A, as the cause of diseases classified elsewhere; M65.841 Other synovitis and tenosynovitis, right hand; M65.842 Other synovitis and tenosynovitis, left hand; B18.2 Chronic viral hepatitis C; D64.9 Anemia, unspecified; I10 Essential (primary) hypertension; F15.10 Other stimulant abuse, uncomplicated; Z72.0 Tobacco use; Z59.0 Homelessness
CPT/HCPCS: 80307; 86708-90; 96365; 97165-GO; A9585; C1751; G0472; G0480; J1100; J1170; J1335; J1885; J2060; J2185; J2250; J2405; J2540; J2704; J2997; J3010; J3370

== ENCOUNTER 2018-04-09 14:12 | Emergency (ER) | payer MEDICAID ==
--- NOTE | 2018-04-09 17:00 | EDPHY ---
H & P Time Seen by Provider: 04/09/18 15:52 HPI/ROS: CHIEF COMPLAINT: Genital lesion HISTORY OF PRESENT ILLNESS: Patient states she has had genital lesions for about 2 to 3 weeks. She states they "have never gone away". They are painful and raised. She denies ever having lesions like this before. She denies sexual relations with a new partner but states that her partner may have had sex with someone new recently. He is asymptomatic. She denies fevers, chills, nausea, vomiting, dysuria, diarrhea. REVIEW OF SYSTEMS: Negative except per HPI. General Appearance: Alert, no distress. Unkempt. Eyes: Pupils equal and round no icterus Respiratory: No respiratory distress Neurological: Awake, alert, no focal deficits. Skin: Warm and dry, multiple bruises, excoriations, some abrasions to upper and lower extremities. Apparent abscess to left upper thigh 3 x 4 cm, is painful to palpation, minimal fluctuance. Perineum: Multiple raised white discrete lesions on labia and anal region. Consistent with genital warts. No surrounding erythema. No discharge. Musculoskeletal: Neck is supple nontender. Extremities are symmetrical, full range of motion, no edema. Psychiatric: Patient is oriented X 3, there is no agitation. Medical/surgical history: Patient states lupus, leukemia, and Crohn's disease Social history: Occasional alcohol, denies drugs. Homeless. Smoking Status: Current every day smoker Constitutional: Initial Vital Signs Temperature (C) 36.8 C 04/09/18 14:36 Heart Rate 92 04/09/18 14:36 Respiratory Rate 16 04/09/18 14:36 Blood Pressure 138/90 H 04/09/18 14:36 O2 Sat (%) 97 04/09/18 14:36 O2 Delivery Mode Room Air Allergies/Adverse Reactions: ampicillin Allergy (Uncoded 04/09/18 14:36) celexa Allergy (Uncoded 04/09/18 14:36) cillins Allergy (Uncoded 04/09/18 14:36) codeine Allergy (Uncoded 04/09/18 14:36) flexeril Allergy (Uncoded 04/09/18 14:36) lexapro Allergy (Uncoded 04/09/18 14:36) tramadol Allergy (Uncoded 04/09/18 14:36) Home Medications: Medication Instructions Recorded Cephalexin [Keflex (*)] 500 mg PO Q6H #28 cap 04/09/18 Sulfamethox/Tmp 800/160 mg 1 tab PO BID #14 tab 04/09/18 [Bactrim Ds] Medical Decision Making ED Course/Re-evaluation: Discussed with OBGYN, Dr. Dyson, plan to do culture of lesion. Follow-up arranged for Tuesday. Offered to incise and drain abscess to left upper thigh patient adamantly refuses. Will start on antibiotics. Differential Diagnosis: Differential diagnosis includes but is not limited to genital warts, herpes, other STD. Patient also with apparent skin abscess although denies injection drug abuse. Discussed with OBGYN for follow-up of likely genital warts. Culture done. Antibiotics started for abscess. No signs of systemic illness, fever, sepsis, fasciitis. Discussed the importance of follow-up for definitive care of these lesions. Stable for discharge. - Data Points Microbiology Results: MICROBIOLOGY 04/09/18 18:05 Groin - Swab Gram Stain - Final Medications Given: Discontinued Medications Cephalexin HCl (Keflex) 500 mg PO EDNOW ONE PRN Reason: Protocol Stop: 04/09/18 18:02 Last Admin: 04/09/18 18:11 Dose: 500 mg Trimethoprim/Sulfamethoxazole (Bactrim Ds) 1 ea PO EDNOW ONE PRN Reason: Protocol Stop: 04/09/18 18:02 Last Admin: 04/09/18 18:11 Dose: 1 ea Departure - Departure Disposition: Home, Routine, Self-Care Clinical Impression: Genital warts, Abscess Condition: Fair Instructions: Cephalexin (By mouth), Sulfamethoxazole/Trimethoprim (By mouth), Genital Warts (ED) Additional Instructions: Follow-up with the OBGYN doctor as instructed tomorrow without fail. Take antibiotics for the abscess but return to the emergency department if this abscess does not improve. Referrals: Alyce Dyson DO [Doctor of Osteopathy] - As per Instructions Prescriptions: Cephalexin [Keflex (*)] 500 mg PO Q6H #28 cap Sulfamethox/Tmp 800/160 mg [Bactrim Ds] 1 tab PO BID #14 tab
[2018-04-09] MEDS: CEPHALEXIN 500 MG CAP PO ONE (18:11)
[2018-04-09] MEDS: SULFAMETHOX/TMP 800/160 MG 1 TAB PO ONE (18:11)
[2018-04-09 18:14] VITALS: BP 120/93
[2018-04-09] MEDS ORDERED: LIDOCAINE 2% JELLY 5 ML TUBE ONE (18:22)
== END 2018-04-09 18:25 | disposition home or self-care (01) ==
DX: A63.0 Anogenital (venereal) warts (principal); N76.4 Abscess of vulva; F17.200 Nicotine dependence, unspecified, uncomplicated; B96.20 Unspecified Escherichia coli [E. coli] as the cause of diseases classified elsewhere